=== PATIENT | female | born 1940 | race Caucasian/White ===

== ENCOUNTER 2018-09-26 16:11 | Inpatient (IN) | payer MEDICARE ==
--- OUTSIDE RECORDS SUMMARY | 2018-09-26 16:48 | XMS REPORT | Continuity of Care Document ---
:1940 External Reference #:[id number] Author Name Venessa Hoff M.D. 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 Onset: 10/21/2009 Osteoarthritis Kirby Huston M.D. Onset: 10/21/2009 Arthralgia of the lower leg Venessa Hoff M.D. Onset: 07/26/2012 Tobacco user Venessa Hoff M.D. Onset: 01/16/2018 Family History Date Family Member(s) Observation Comments First Son healthy lives in [place]. First Daughter healthy. loves next door. First Brother estranged. First Sister 72 dt ?? estranged. Social History Type Date Description Comments Sex Unknown Marital Status Patient is , of some sort of Cancer - possibly lung age 79, 05/2016. 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 Tobacco Use Start: Unknown Current Cigarette started when she was Smoker 1/2 Pack Daily in her 20's. Never stopped, never tried to stop. Smoking Status Reviewed: 12/19/17 Current Cigarette started when she was Smoker 1/2 Pack Daily in her 20's. Never stopped, never tried to stop. ETOH Use Denies alcohol use Tobacco Use Start: Unknown Patient is a current smoker, smokes every day Exercise Type/Frequency Exercises regularly Current goes to the [employer] to walk twice a week with a friend, from 1 hour to 3 hours. Allergies, Adverse Reactions, Alerts Description No Known Drug Allergies Medications Active Medications SIG Qnty Indications Ordering Provider Date [place] [facility] Venessa Hoff M.D. 02/20/2018 Ibuprofen prn Unknown 200mg Tablets History Medications Metoprolol Tartrate Take One Tablet 180tabs I10 Lu Tai, 12/23/2012 - 25mg By Mouth Twice [facility] 09/26/2018 Tablets Day Oxycodone HCL 1/2 to 1 po at 30tabs 719.46 Venessa Martinez 07/26/2012 - 5mg Tablets hs Joseline Hoff 12/19/2017 Lidoderm use on knees for 90units 719.46 Venessa Martinez 07/26/2012 - 5% Patches up to 12hours Joseline Hoff 01/16/2018 prn for pain Zyrtec 1 po qd - bid OTC 692.6 Lu Tai, 02/01/2011 - 10mg Tablets [facility] 12/06/2011 Lidex apply to 30gm 692.6 Lu Zaire, 02/01/2011 - 0.05% Cream affected areas [facility] 12/06/2011 bid K-Dur 1 po qd 60tabs Kirby A. 10/22/2009 - 20Meq Tablets PREETHI Huston M.D. 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 Also Low Back Percocet 1 PO Q 6HRS prn 60units Lisandro Lee 02/01/1999 - Joseline Go 11/21/2001 Voltaren XR 1 qd 20units Lisandro Lee 12/07/1998 - 100mg XR Joseline Go 11/21/2001 Relafen 1 PO bid prn 60units Lisandro Lee 11/26/1998 - 500mg Joseline Go 12/07/1998 Valium 1 PO tid prn 30units Lisandro Lee 11/16/1998 - 5mg Joseline Go 11/21/2001 Physical Therapy Treatment And Lisandro Lee 11/16/1998 - Evaluation Of Joseline Go 12/06/1998 L-S Spine Strain And Spasm With Sciatica Tylenol #3 1-2 PO Q4H prn 20units Bebe 11/15/1998 - #3 Lacie, 11/29/1998 Afnp-C Immunizations CPT Code Status Date Vaccine Lot # [id number] Given 01/16/2018 High-Dose, Influenza Virus Vacccine-fluzone 65 and [id number] older 84204 Given 12/19/2017 Pneumococcal Conjugate Vacc-13 [id number] Given 02/26/2015 High-Dose, Influenza Virus Vacccine-fluzone 65 and [id number] older 63995 Given 01/17/2014 High-Dose, Influenza Virus Vacccine-fluzone 65 and [id number] older 71729 Given 02/11/2013 High-Dose, Influenza Virus Vacccine-fluzone 65 and [id number] older 34722 Given 07/26/2012 Pneumococcal Immunization [id number] 58384 Given 03/23/2009 DO Not Use Split Influenza Virus Vaccine [id number] Vital Signs Date Vital Result Comment 09/26/2018 2:35pm BP Systolic 150 mmHg BP Diastolic 108 mmHg Heart Rate 66 /min Body Temperature 98.3 F Respiratory Rate 18 /min Height 62 inches 5'2" Weight 110.00 lb BMI (Body Mass Index) 20.1 kg/m2 02/20/2018 10:57am BP Systolic 126 mmHg BP Diastolic 70 mmHg Heart Rate 52 /min Body Temperature 97.9 F Respiratory Rate 16 /min Height 62 inches 5'2" Weight 105.00 lb BMI (Body Mass Index) 19.2 kg/m2 01/16/2018 11:05am BP Systolic 118 mmHg BP Diastolic 82 mmHg Heart Rate 68 /min Body Temperature 98.4 F Height 62 inches 5'2" Weight 107.38 lb BMI (Body Mass Index) 19.6 kg/m2 12/19/2017 2:08pm BP Systolic 138 mmHg BP Diastolic 80 mmHg Heart Rate 64 /min Body Temperature 98.6 F Respiratory Rate 16 /min Height 62 inches 5'2" Weight 107.50 lb BMI (Body Mass Index) 19.7 kg/m2 07/26/2012 4:10pm BP Systolic 120 mmHg BP Diastolic 76 mmHg Heart Rate 72 /min Body Temperature 97.2 F Height 62.5 inches 5'2.50" Weight 127.00 lb BMI (Body Mass Index) 22.9 kg/m2 12/06/2011 3:16pm BP Systolic 100 mmHg BP Diastolic 60 mmHg Heart Rate 62 /min Body Temperature 97.6 F Respiratory Rate 18 /min Height 62.5 inches 5'2.50" Weight 134.00 lb BMI (Body Mass Index) 24.1 kg/m2 02/01/2011 3:51pm BP Systolic 122 mmHg BP Diastolic 82 mmHg Heart Rate 84 /min Height 62.5 inches 5'2.50" Weight 152.00 lb BMI (Body Mass Index) 27.4 kg/m2 10/28/2010 3:06pm BP Systolic 116 mmHg BP Diastolic 64 mmHg Heart Rate 72 /min Body Temperature 98.0 F Height 62.5 inches 5'2.50" Weight 156.00 lb BMI (Body Mass Index) 28.1 kg/m2 10/21/2009 3:32pm BP Systolic 120 mmHg BP Diastolic 80 mmHg Heart Rate 84 /min Body Temperature 98.6 F Respiratory Rate 16 /min Height 62.5 inches 5'2.50" Weight 157.00 lb BMI (Body Mass Index) 28.3 kg/m2 02/19/2009 1:58pm BP Systolic 118 mmHg BP Diastolic 72 mmHg Heart Rate 74 /min Weight 165.00 lb 03/20/2008 11:08am BP Systolic 120 mmHg BP Diastolic 88 mmHg Heart Rate 68 /min Body Temperature 98.0 F Weight 178.00 lb 03/13/2007 1:27pm BP Systolic 120 mmHg BP Diastolic 80 mmHg Heart Rate 80 /min Body Temperature 97.1 F Weight 172.00 lb 02/24/2006 9:05am BP Systolic 120 mmHg BP Diastolic 80 mmHg Heart Rate 76 /min Body Temperature 98.1 F Weight 167.00 lb 03/23/2005 1:48pm BP Systolic 110 mmHg BP Diastolic 70 mmHg Heart Rate 70 /min 02/27/2005 1:21pm BP Systolic 128 mmHg BP Diastolic 88 mmHg Heart Rate 80 /min Weight 158.00 lb 01/25/2005 3:11pm BP Systolic 140 mmHg BP Diastolic 90 mmHg Heart Rate 100 /min 11/21/2001 9:52am BP Systolic 132 mmHg BP Diastolic 84 mmHg Weight 165.00 lb 08/16/2001 11:31am BP Systolic 134 mmHg BP Diastolic 80 mmHg Heart Rate 76 /min 05/28/2001 3:21pm BP Systolic 150 mmHg BP Diastolic 90 mmHg Heart Rate 100 /min Weight 172.00 lb 02/01/1999 2:08pm BP Systolic 142 mmHg LA SM Cuff BP Diastolic 90 mmHg LA SM Cuff Weight 127.00 lb 11/15/1998 8:00pm Body Temperature 97.8 F Results Test Date Facility Test Result H/L Range Note Laboratory test 05/02/2018 [facility] Cytology SEE RESULT 1 finding Non-Leather Lacer BELOW Laboratory test 02/20/2018 [facility](fma) Free T3 3.02 pg/mL 2.00- 4.90 finding Free T4 1.35 ng/dL 0.75-1.54 TSH 0.19 mIU/L Low 0.50-6.00 2 Vitamin D25 42 30-100 Thyroid Antibody & 02/20/2018 [facility] Thyroid Peroxidase 11 IU/mL 0-34 3 Peroxidase [address] [facility] (Tpo) [place] [address] (607)- - Thyroglobulin Antibody <1.0 IU/mL 0.0-0.9 4 Laboratory test finding 01/16/2018 [facility](fma) TSH 0.29 mIU/L Low 0.50-6.00 5 Free T4 1.10 ng/dL 0.75-1.54 Free T3 2.84 pg/mL 2.00-4.90 Lipid Profile 12/19/2017 [facility](fma) Cholesterol 181 mg/dL 120- 200 Triglycerides 115 mg/dL 30-200 HDL Cholesterol 62 mg/dL 30-85 LDL (Calculated) 96 CALC 0-129 VLDL Cholesterol 23 mg/dL 0-50 HDL Risk Factor 2.9 CALC 0.0-4.4 Comprehensive Metabolic 12/19/2017 [facility](fma) Sodium 143 mEq/L 134-149 Prof Potassium 4.2 mEq/L 3.6-5.5 Chloride 107 mEq/L 94-112 Carbon Dioxide 28 mEq/L 21-32 Glucose 109 mg/dL High 70-105 6 BUN 25 mg/dL 6-26 Creatinine 0.6 mg/dL 0.6-1.4 BUN/Creat Ratio 41.7 CALC High 8.0-36.0 Calcium 9.4 mg/dL 8.6-10.2 Total Protein 6.7 g/dL 6.4-8.3 Albumin 4.6 g/dL 3.8-5.5 Globulin 2.1 g/dL 2.0-4.8 A/G Ratio 2.2 CALC 0.6-2.3 Alk. Phosphatase 85 U/L 30-110 Alt (SGPT) 29 U/L 7-35 Ast (Sgot) 24 U/L 5-34 Total Bilirubin 0.4 mg/dL 0.2-1.3 GFR Non- >60 ml/min/1.73m^ >=60 GFR >60 ml/min/1.73m^ >=60 Laboratory test finding 12/19/2017 [facility](fma) TSH 0.12 mIU/L Low 0.50-6.00 7 Free T4 1.11 ng/dL 0.75-1.54 CBC Electronic (a New) 12/19/2017 [facility] WBC 5.51 4.0-10.0 (607)- - RBC 3.85 Low 3.93-6.0 Hemoglobin (Fma/CMC/CTX) 13.0 g/dL 12.0-17.0 Hematocrit (Fma/CMC/CTX) 38.2 % 35.0-50.0 Mean Corpuscular Vol 99.2 fL High 80-95 Mean Corpuscular Hemoglobin 33.8 pg High 25.6-32.2 Mean Corpuscular Hemo Concen 34.0 g/dL 32.2-36.0 Platelets 187 10^3/ul 163-400 RDW-CV 13.3 11.6-14.4 Mean Platelet Volume 10.5 fL 8.0-12.4 Absolute Neutrophils BLD 2.95 1.56-6.13 Absolute Lymphocytes 1.89 1.18-3.74 Absolute Monocytes BLD Auto 0.55 0.24-0.82 Absolute Eos Blood 0.08 0.04-0.54 Absolute Basophils 0.03 0.01-0.08 Neutrophil % 53.5 % 34.0-70.0 Lymph% 34.3 % 20.0-52.0 Monocytes % 10.0 % 5.0-12.0 Eos % 1.5 % 0.7-7.0 Basophil% 0.5 % 0-1.2 Arthritis Panel 08/08/2012 [facility] Erythrocyte Sed Rate 12 mm/Hr 0-40 Uric Acid 5.3 mg/dL 2.6-7.2 Lilliana (Anti-Nuclear AB) Screen Negative Negative Rheumatoid Factor <15 IU/mL <15 8 Laboratory test 08/08/2012 [facility] C Reactive < 0.5 mg/dL Less than finding Protein 0.5 Laboratory test 12/06/2011 [facility]) TSH 0.47 mIU/L Low 0.50- 6.00 9 finding Free T4 1.17 ng/dL 0.75-1.54 Iron 114 g/dL 60-150 CBC Electronic ([facility]) 12/06/2011 [facility] WBC 7.7 3.6-9.6 (607)- - RBC 4.39 3.90-5.70 Hemoglobin (Fma/CMC/CTX) 14.3 g/dL 12.1 - 17.2 Hematocrit (Fma/CMC/CTX) 43.6 % 36.1 - 50.3 Platelets 269 10^3/ul 150-400 Lymph% 31.0 20.5-51.1 Mixed% 6.9 Neutrophils % 62.1 Mean Corpuscular Vol 99 High 82.2-97.4 10 Mean Corpuscular Hemoglobin 32.7 27.6-33.3 Mean Corpuscular Hemo Concen 32.9 32.0-36.0 RDW 13.2 11.6-13.7 Mean Platelet Volume 7.6 6.5-11.0 Comprehensive Metabolic 12/06/2011 [facility](fma) Albumin 4.8 g/dL 3.8-5.5 Prof Alk. Phos. 82 U/L 30-110 Alt (SGPT) 17 U/L 7-35 Ast (Sgot) 19 U/L 5-34 BUN 19 mg/dL 6-26 Calcium 9.4 mg/dL 8.6-10.2 Chloride 94 mEq/L 94-112 Creatinine 0.7 mg/dL 0.6-1.4 Carbon Dioxide 26 mEq/L 21-32 Glucose 122 mg/dL High 70-105 11 Sodium 135 mEq/L 134-149 Total Bilirubin 0.4 mg/dL 0.2-1.3 Total Protein 7.0 g/dL 6.3-8.1 Potassium 3.2 mEq/L Low 3.6-5.5 12 Globulin 2.2 g/dL 2.0-4.8 A/G Ratio 2.2 Calc 0.6-2.2 BUN/Creat Ratio 28.0 Calc 8.0-36.0 Basic Metabolic Profile 01/14/2010 [facility](fma) BUN 23 mg/dL 6- 26 Calcium 9.6 mg/dL 8.6-10.2 Chloride 95 mEq/L 94-112 Creatinine 0.9 mg/dL 0.6-1.4 Carbon Dioxide 30 mEq/L 21-32 Glucose 102 mg/dL 70-105 Sodium 135 mEq/L 134-149 Potassium 3.7 mEq/L 3.6-5.5 BUN/Creat Ratio 25.5 Calc 8.0-36.0 Electrolytes Profile 10/25/2009 [facility](a) Chloride 99 mEq/L 94 -112 Carbon Dioxide 28 mEq/L 21-32 Sodium 141 mEq/L 134-149 Potassium 3.9 mEq/L 3.6-5.5 Anion Gap 17.0 RATIO 7.0-34.0 Basic Metabolic Profile 10/21/2009 [facility](a) BUN 23 mg/dL 6- 26 Calcium 10.0 mg/dL 8.6-10.2 Chloride 96 mEq/L 94-112 Creatinine 0.8 mg/dL 0.6-1.4 Carbon Dioxide 27 mEq/L 21-32 Glucose 138 mg/dL High 70-105 13 Sodium 141 mEq/L 134-149 Potassium 2.9 mEq/L Low 3.6-5.5 14 BUN/Creat Ratio 29.3 Calc 8.0-36.0 Comprehensive Metabolic 02/23/2009 [facility](a) Albumin 4.6 g/dL 3.8-5.5 15 Prof Alk. Phos. 84 U/L 30-110 Alt (SGPT) 13 U/L 7-35 Ast (Sgot) 20 U/L 5-34 BUN 22 mg/dL 6-26 Calcium 9.3 mg/dL 8.6-10.2 Chloride 97 mEq/L 94-112 Creatinine 0.9 mg/dL 0.6-1.4 Carbon Dioxide 28 mEq/L 21-32 Glucose 113 mg/dL High 70-105 Sodium 137 mEq/L 134-149 Total Bilirubin 0.5 mg/dL 0.2-1.3 Total Protein 7.3 g/dL 6.3-8.1 Potassium 3.3 mEq/L Low 3.6-5.5 16 Globulin 2.7 g/dL 2.0-4.8 A/G Ratio 1.7 Calc 0.6-2.2 BUN/Creat Ratio 24.9 Calc 8.0-36.0 Lipid Profile 02/23/2009 [facility](a) Cholesterol 243 mg/dL High 120-200 HDL 47 mg/dL 30-85 Triglycerides 156 mg/dL 30-200 HDL Risk Factor 5.1 CALC 4.2-7.0 LDL (Calculated) 165 CALC High 0-129 VLDL (Calculated) 31 mg/dL 0-50 Comprehensive Metabolic 03/22/2007 [facility](a) Albumin 4.6 g/dL 3.8-5.5 Prof Alk. Phos. 84 U/L 30-110 Alt (SGPT) 11 U/L 7-35 Ast (Sgot) 15 U/L 5-34 BUN 21 mg/dL 6-26 Calcium 9.0 mg/dL 8.6-10.2 Chloride 96 mEq/L 94-112 Creatinine 0.9 mg/dL 0.6-1.4 Carbon Dioxide 30 mEq/L 21-32 Glucose 107 mg/dL High 70-105 Sodium 139 mEq/L 134-149 Total Bilirubin 0.4 mg/dL 0.2-1.3 Total Protein 7.2 g/dL 6.3-8.1 Potassium 3.3 mEq/L Low 3.6-5.5 17 Globulin 2.6 g/dL 2.0-4.8 A/G Ratio 1.7 Calc 0.6-2.2 BUN/Creat Ratio 25.1 Calc 8.0-36.0 Lipid Profile 03/22/2007 [facility](a) Cholesterol 231 mg/dL High 120-200 HDL 41 mg/dL 30-85 Triglycerides 117 mg/dL 30-200 HDL Risk Factor 5.6 CALC 4.2-7.0 LDL (Calculated) 167 CALC High 0-129 VLDL (Calculated) 23 mg/dL 0-50 Basic Metabolic 01/25/2005 [facility] Glucose, Serum 152 mg/dL High 70-105 (a) (607)- - (Fma/CMC/CTX) BUN (Fma/CMC/Centrex) 17 mg/dL 6-26 Creatinine (Fma/CMC/CTX) 0.7 mg/dL 0.6-1.4 BUN/Creatinin Ratio 26.9 8.0-36 Sodium 139 134-149 Potassium 3.7 3.6-5.5 Chloride 97 mEq/L 94-112 Co2 29 21-32 Calcium (Fma/CMC/Centrex) 8.6 mg/dL 8.6-10.2 Laboratory test finding 05/24/2000 [facility] Rheumatoid Fact <7.5 0-14 Final Lilliana Report NEGATIVE Negative Laboratory test finding 05/24/2000 [facility] Free T4 1.1 ng/dL 0.7-1.8 Thyroxine, Total (T4) 8.3 g/dL 5-12 TSH 0.5 0.3-4.5 C React Protein <0.30 mg/dL <0.5 Sed Rate 25 MM/HR 0-30 1 SEE RESULT BELOW Name: GRAYSON DE LOS SANTOS : [address]: Mark Morin MD Acct: [id number] Unit: [id number] AGE: 77 Location: THYROID Re05/02/18 SEX: F Status: REG REF SPEC: [id number] KLEBER: 05/02/18-[address] [facility] [address]: Mark Morin MD REQ: [id number] RECD: 05/02/18-1140 STATUS: MITCHEL LUCAS DR: Bill Hoff MD _ ORDERED: FNA-IMG GUID BX/2, CY ADEQ-ADDL P, CYTO ADEQ-1ST P/2 FINAL DIAGNOSIS 1. Thyroid, right, ultrasound guided fine needle aspiration: --Benign thyroid nodule, involutional type ([place] Class II). 2. Thyroid, isthmus, ultrasound guided fine needle aspiration: --Benign thyroid nodule, colloid/hyperplastic type ([place] Class II). 1. The specimen demonstrates moderate watery proteinaceous fluid, a moderate amount of benign appearing follicular epithelium arranged in uniform sheets, medium sized follicles and only occasional small groups. Abundant pigmented and non-pigmented macrophages are seen in the background. No features of papillary carcinoma are seen. In this clinical setting the risk of malignancy is less than 3%. Clinical management of this thyroid nodule should be based on clinical and radiographic features as well as the above findings. 2. The specimen demonstrates abundant watery colloid, a modest amount of benign appearing follicular epithelium arranged in uniform sheets, medium sized follicles and only occasional small groups. No features of papillary carcinoma are seen. In this clinical setting the risk of malignancy is less than 3%. Clinical management of this thyroid nodule should be based on clinical and radiographic features as well CONTINUED ON NEXT PAGE DEPARTMENT OF PATHOLOGY, [address] [place] [address] Lisandro Velasco M.D. Director [facility] # [id number] RUN DATE: 05/02/18 [facility] LAB LIVE PAGE 2 Patient: GRAYSON DE LOS SANTOS Samara [id number] (Continued) SPECIMEN COMMENTS (Continued) as the above. #1. THYROID RIGHT - US GUIDED FINE NEEDLE ASPIRATION, #2. THYROID ISTHMUS - US GUIDED FINE NEEDLE ASPIRATION CLINICAL HISTORY 1. Right thyroid nodule 2.6 x 1.8 x 1.6cm 2. Isthmus thyroid nodule 1.1 x 0.9 x 1.3cm IMMEDIATE INTERPRETATION 1. Pass 1-inadequate, pass 2-adequate 2. Pass 1-adequate GROSS DESCRIPTION 1. 5- alcohol fixed slide(s) 2- passes 2. 2- alcohol fixed slide(s) 1- pass 1. Signed by and Reported on: Crystal Meehan MD 05/02/18 1156 END OF REPORT DEPARTMENT OF PATHOLOGY, [address] [place] [address] Lisandro Velasco M.D. Director [facility] # [id number] 2 RESULTS VERIFIED BY REPEAT ANALYSIS 3 1sst 4 Thyroglobulin Antibody measured by [employer] [facility] 5 RESULTS VERIFIED BY REPEAT ANALYSIS 6 RESULTS VERIFIED BY REPEAT ANALYSIS 7 RESULTS VERIFIED BY REPEAT ANALYSIS 8 Test Performed by: [place] [address] Manager Plumbing: Manoj Loco III, M.D. 9 RESULT JOÃO'D 10 results rechecked 11 RESULT JOÃO'D 12 RESULT JOÃO'D 13 result joão'd 14 result joão'd md aware 15 FASTING 16 result joão'd and consisent with prevoius results. 17 RESULT VERIFIED BY REPEAT ANALYSIS Procedures Date Code Description Status 10/21/2009 93478 Electrocardiogram Complete Completed Encounters Type Date Location Provider Dx Diagnosis Office Visit 02/20/2018 Main Office Venessa Hoff, R94.6 Abnormal results of 10:40a Joseline thyroid function studies F17.210 Nicotine dependence, cigarettes, uncomplicated M85.80 Oth disrd of bone density and structure, unspecified site E55.9 Vitamin D deficiency, unspecified I67.2 Cerebral atherosclerosis Z71.6 Tobacco abuse counseling Office Visit 01/16/2018 10:40a Main Office Venessa Martinez I10 Essential ( primary) Joseline Hoff hypertension R94.6 Abnormal results of thyroid function studies F17.210 Nicotine dependence, cigarettes, uncomplicated I65.21 Occlusion and stenosis of right carotid artery R53.1 Weakness M81.0 Age-related osteoporosis w/o current pathological fracture Z23 Encounter for immunization Office Visit 12/19/2017 2:00p Main Office Venessa Martinez Z00.01 Encounter for Joseline Hoff general adult medical exam w abnormal findings F17.210 Nicotine dependence, cigarettes, uncomplicated I10 Essential (primary) hypertension M19.90 Unspecified osteoarthritis, unspecified site E78.2 Mixed hyperlipidemia Z23 Encounter for immunization Office Visit 07/26/2012 3:20p [facility] Venessa Martinez 719.46 Pain Joint Joseline Hoff Lower Leg v03.82 Streptococcus Pneumoniae Vaccination Spec Other Office Visit 12/06/2011 3:00p Main Office Lu Tai, 401.9 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 Office Visit 02/01/2011 3:15p [facility] Lu Tai, 692.6 Dermatitis Contact 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 Due To Plants (Except Food) Office Visit 10/28/2010 3:00p Main Office Lu Tai, 401.9 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 Office Visit 10/21/2009 3:40p Main Office Kirby Eason V72.83 Examination Joseline Huston Preoperative Other Spec 366.9 Cataract Unspec 401.9 Hypertension Unspec 715.90 Osteoarthrosis Unspec Genlzd Or Localzd Site Unspec Office Visit 02/19/2009 2:00p Main Office Lu Tai, 401.9 Hypertension Unspec 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 Office Visit 02/27/2005 1:10p Main Office Darrell Darling 401.9 Hypertension Unspec M.D. Office Visit 01/25/2005 3:10p Main Office Darrell Darling 401.9 Hypertension Unspec M.D. Office Visit 11/21/2001 9:40a Main Office Darrell Darling M.D. Office Visit 08/16/2001 11:00a Main Office Yaya Law M.D. Office Visit 05/28/2001 3:00p Main Office Lisandro Go M.D. Plan of Treatment 09/26/2018 - Venessa Hoff M.D.R06.02 Shortness of breathComments:with em edema, tachycardia, will send to ER for further work up.AllComments:Medication Management Patient Understands medications she's taking? Yes No Are there Barriers to Adherence? Yes No Has the patient been asked about herbal supplements and therapies, and OTC meds? Yes No
[2018-09-26 18:48] LABS: ABS Lymphocytes 1.8 10^3/ul (1.0-4.8); ABS Monocytes 0.6 10^3/ul (0-0.8); ABS Neutrophils 5.9 10^3/ul (1.5-7.7); Eosinophil % 0.2 %; Hematocrit 45 % (35-47); Hemoglobin 14.9 g/dL (12.0-16.0); Lymphocyte % 21.9 %; Mean Corpuscular HGB Conc 33 g/dL (31-36); Mean Corpuscular Hemoglobin 34 pg (27-31); Mean Corpuscular Volume 102 fL (80-97); Mean Platelet Volume 9.3 fL (7.4-10.4); Nucleated Red Blood Cells % 0.1; Platelet Count 193 10^3/uL (150-450); Red Cell Distribution Width 14 % (10-15); White Blood Count 8.4 10^3/uL (3.5-10.8)
[2018-09-26 19:02] LABS: Activated Partial Thrombo Time 29.3 seconds (26.0-38.0); INR 1.1 (0.82-1.09)
--- NOTE | 2018-09-26 19:10 | ED ---
Lower Extremity - HPI Summary HPI Summary: Pt is a 77 y/o F presenting to the ED with a chief complaint of edema in her lower extremity bilaterally. She was at her PCP who noted that her bilateral LE edema was worsened, and wanted her to r/o CHF. She reports fatigue, bilateral LE edema, and dizziness with position change. She denies black or tarry stools, blood in stool, or hematuria. - History of Current Complaint Chief Complaint: EDShortnessOfBreath Stated Complaint: SOB, HIGH BP PER PT Time Seen by Provider: 09/26/18 18:05 Hx Obtained From: Patient Mechanism Of Injury: Unknown Onset/Duration: Still Present Severity Initially: Mild Severity Currently: None Pain Intensity: 0 Pain Scale Used: 0-10 Numeric Timing: Constant, Lasting Days Location: Is Diffuse - LE Associated Signs And Symptoms: Positive: Swelling Aggravating Factor(s): Nothing Alleviating Factor(s): Nothing Able to Bear Weight: Yes - Allergies/Home Medications Allergies/Adverse Reactions: Allergies Allergy/AdvReac Type Severity Reaction Status Date / Time No Known Allergies Allergy Verified 09/26/18 16:12 PMH/Surg Hx/FS Hx/Imm Hx Previously Healthy: Yes Endocrine/Hematology History: Denies: Hx Diabetes, Hx Anemia GI History: Denies: Hx Jaundice Infectious Disease History: No Infectious Disease History: Denies: Traveled Outside the [place] in Last 30 Days - Family History Known Family History: Negative: Cardiac Disease - Social History Alcohol Use: None Hx Substance Use: No Substance Use Type: Reports: None Hx Tobacco Use: Yes Smoking Status (MU): Heavy Every Day Tobacco Smoker Review of Systems Positive: Other - blood in stool, black tarry stool Positive: hematuria Positive: Edema Neurological: Other - dizziness All Other Systems Reviewed And Are Negative: Yes Physical Exam - Summary Physical Exam Summary: Constitutional: Well-developed, Well-nourished, Alert. (-) Distressed Skin: Warm, Dry HENT: Normocephalic; Atraumatic Eyes: Conjunctiva normal Neck: Musculoskeletal ROM normal neck. (-) JVD, (-) Stridor, (-) Tracheal deviation Cardio: irregularly irregular, rate normal, Heart sounds normal; Intact distal pulses; The pedal pulses are 2+ and symmetric. Radial pulses are 2+ and symmetric. Pulmonary/Chest wall: Effort normal. (-) Respiratory distress, (-) Wheezes, Bibasilar rales present Abd: Soft, (-) tenderness, (-) Distension, (-) Guarding, (-) Rebound Musculoskeletal: Edema in the L leg is 3-4+ pitting, and edema in R leg is 2+ pitting. Posterior compartment is firm in the L calf in comparison to the R calf. Neuro: Alert, Oriented x3 Psych: Mood and affect Normal Triage Information Reviewed: Yes Vital Signs On Initial Exam: Initial Vitals Temp Pulse Resp BP Pulse Ox 97.5 F 112 18 155/103 93 09/26/18 16:12 09/26/18 16:12 09/26/18 16:12 09/26/18 16:12 09/26/18 16:12 Vital Signs Reviewed: Yes Diagnostics - Vital Signs Vital Signs Temp Pulse Resp BP Pulse Ox 09/26/18 16:12 97.5 F 112 18 155/103 93 - Laboratory Lab Results: Lab Results 09/26/18 09/26/18 Range/Units 18:41 18:41 WBC 8.4 (3.5-10.8) 10^3/uL RBC 4.40 (3.70-4.87) 10^6 /uL Hgb 14.9 (12.0-16.0) g/dL Hct 45 (35-47) % MCV 102 H (80-97) fL MCH 34 H (27-31) pg MCHC 33 (31-36) g/dL RDW 14 (10-15) % Plt Count 193 (150-450) 10^3/uL MPV 9.3 (7.4-10.4) fL Neut % (Auto) 70.1 % Lymph % (Auto) 21.9 % [place] % (Auto) 7.4 % Eos % (Auto) 0.2 % Baso % (Auto) 0.4 % Absolute Neuts (auto) 5.9 (1.5-7.7) 10^3/ul Absolute Lymphs (auto) 1.8 (1.0-4.8) 10^3/ul Absolute Monos (auto) 0.6 (0-0.8) 10^3/ul Absolute Eos (auto) 0.0 (0-0.6) 10^3/ul Absolute Basos (auto) 0.0 (0-0.2) 10^3/ul Absolute Nucleated RBC 0.0 10^3/ul Nucleated RBC % 0.1 INR (Anticoag Therapy) 1.10 H (0.82-1.09) APTT 29.3 (26.0-38.0) seconds Result Diagrams: 09/26/18 18:41 Lab Statement: Any lab studies that have been ordered have been reviewed, and results considered in the medical decision making process. Lower Extremity Course/Dx - Course Course Of Treatment: Pt is a 77 y/o F presenting to the ED with a chief complaint of edema in her lower extremity bilaterally. She was at her PCP who noted that her bilateral LE edema was worsened, and wanted her to r/o CHF. She reports fatigue, bilateral LE edema, and dizziness with position change. She denies black or tarry stools, blood in stool, or hematuria. In the room, the pt 's HR was variable between 69-110. On exam, there is edema in the L leg is 3-4 + pitting, and edema in R leg is 2+ pitting. Posterior compartment is firm in the L calf in comparison to the R calf. Pt will be signed out to Dr. Ashraf at shift change pending further workup. - Diagnoses Provider Diagnoses: Fatigue, Leg edema Discharge - Sign-Out/Discharge Documenting (check all that apply): Sign-Out Patient Signing out patient TO: Angela Ashraf - Discharge Plan Condition: Stable Referrals: Venessa Hoff MD [Primary Care Provider] - - Attestation Statements Document Initiated by Scribe: Yes Documenting Scribe: Yaritza Anna Provider For Whom Mariam is Documenting (Include Credential): Denny Stiles MD. Scribe Attestation: Yaritza Iglesias, scribed for Denny Stiles MD. on 09/26/18 at 1910. Status of Scribe Document: Ready
[2018-09-26 19:14] LABS: Albumin 3.9 g/dL (3.2-5.2); CO2 Carbon Dioxide 33 mmol/L (22-32); Calcium 9.8 mg/dL (8.6-10.3); Chloride 107 mmol/L (101-111); Magnesium 1.8 mg/dL (1.9-2.7); Potassium 3.3 mmol/L (3.5-5.0)
[2018-09-26 19:15] LABS: Anion Gap 6 mmol/L (2-11); Sodium 146 mmol/L (135-145)
[2018-09-26 19:20] LABS: ALT 112 U/L (7-52); AST 61 U/L (13-39); Albumin/Globulin Ratio 1.9 (1-3); Alkaline Phosphatase 70 U/L (34-104); Blood Urea Nitrogen 30 mg/dL (6-24); Creatine Kinase 35 U/L (10-223); EGFR African American 145.5 (>60); EGFR Non-African American 120.3 (>60); Globulin 2.1 g/dL (2-4); Glucose 108 mg/dL (70-100)
[2018-09-26 19:22] LABS: Troponin I 0.11 ng/mL (<0.04)
--- NOTE | 2018-09-26 19:47 | ED ---
Progress - Progress Note Progress Note: The pt is a sign out from Dr. Stiles to Dr. Ashraf at shift change on 09/26/18 at 1900 pending a CXR and VL Lower Extremity vein bilaterally. - Results/Orders Results/Orders: The pt had an EKG which showed sinus tachycardia of 109 BPM, LVH, with no acute ischemia. The EKG was interpreted at 1945. The pt received a CXR that showed cardiomegaly with bilateral interstitial infiltrate. This report is consistent with CHF. Pending an official review. The pt received a Venous Doppler study of her LE which found 1. Poor visualization of calf veins bilaterally due to edema, uncontrollable movement and tenderness and DVTs difficult to exclude in the calves. 2. Otherwise negative bilateral lower extremity venous duplex exam without evidence of deep venous thrombosis above the knees. ED Physician has reviewed this report. Re-Evaluation - Re-Evaluation First Eval Re-Evaluation Time: 19:47 Change: Unchanged Comment: The pt stated that she has had swollen feet since Sunday09/22/18. She does not currently take any medications for edema. She is on no current medications at home other than APAP and Advil. She denies any pain in her chest. Upon a PE the pt was found to have fluid in her lungs. Course/Dx - Course Course Of Treatment: The pt is a sign out from Dr. Stiles to Dr. Ashraf at shift change on 09/26/18 at 1900 pending a CXR and VL Lower Extremity vein bilaterally. Pt has abnormal lab values in Sodium, Potassium, Carbon Dioxide, BUN, Creatinine, BUN/Creatinine ration, Glucose, Magnesium, AST, ALT, Troponin 1 of .11, Total Protein, and B-Natriuretic Peptide of >1300. The pt stated that she has had swollen feet since Sunday09/22/18. She does not currently take any medications for edema. She is on no current medications at home other than APAP and Advil. She denies any pain in her chest. Upon a PE the pt was found to have fluid in her lungs. The pt had an EKG which showed sinus tachycardia of 109 BPM , LVH, with no acute ischemia. The EKG was interpreted at 1945. The pt received a CXR that showed cardiomegaly with bilateral interstitial infiltrate. This report is consistent with CHF. She also received a venous doppler study of her LE which found: 1. Poor visualization of calf veins bilaterally due to edema, uncontrollable. movement and tenderness and DVTs difficult to exclude in the calves. 2. Otherwise negative bilateral lower extremity venous duplex exam without evidence of deep venous thrombosis above the knees. The pt will be admitted to [facility] with a diagnosis of CHF and will be placed under the care of Dr. Hilliard, Hospitalist, who accepts the pt. - Diagnoses Provider Diagnoses: CHF (congestive heart failure) - Provider Notifications Discussed Care Of Patient With: Shweta Hilliard Time Discussed With Above Provider: 20:15 Instructed by Provider To: Admit As Inpatient Admit/Transition Orders Completed By ED Provider: Yes Discharge - Sign-Out/Discharge Documenting (check all that apply): Patient Departure - admitted, Receiving Sign -Out Receiving patient FROM: Denny Stiles All imaging exams completed and their final reports reviewed: Yes Patient Received Moderate/Deep Sedation with Procedure: No - Discharge Plan Condition: Stable Disposition: ADMITTED TO [facility] - Billing Disposition and Condition Condition: STABLE Disposition: Admitted to [facility] - Attestation Statements Document Initiated by Bethanyibe: Yes Documenting Scribe: Salvatore Leach Provider For Whom Bethanyibe is Documenting (Include Credential): Angela Ashraf MD Scribe Attestation: Salvatore Iglesias, scribed for Angela Ashraf MD on 09/27/18 at 0600. Scribe Documentation Reviewed: Yes Provider Attestation: The documentation as recorded by the Salvatore pringle accurately reflects the service I personally performed and the decisions made by Jessica moyer MD Status of Scribe Document: Viewed
[2018-09-26] MEDS ORDERED: Aspirin 81 mg CHEW TAB* 81 MG TAB.CHEW PO ONE (19:50)
[2018-09-26] MEDS ORDERED: Furosemide IV* 10 MG/ML VIAL (40 MG) IV SLOW PU ONE (19:50)
[2018-09-26] MEDS ORDERED: Potassium Chlor TAB* 20 MEQ TAB.ER PO ONE (19:51)
[2018-09-26] MEDS ORDERED: Acetaminophen TAB* 325 MG PO PRN (21:26)
[2018-09-26] MEDS ORDERED: Ondansetron INJ* 2 MG/ML VIAL IV PRN (21:26)
[2018-09-26] MEDS ORDERED: Magnesium Sulfate 2 GM IV* 2 GM/50 ML BAG IVPB ONE (22:03)
[2018-09-26] MEDS: Enoxaparin(*) 40 MG/0.4 ML SYR SUBCUT SCH (23:27)
--- NOTE | 2018-09-27 00:21 | HP ---
CC: Dr. Venessa Hoff * HISTORY AND PHYSICAL: DATE OF ADMISSION: 09/26/18 PRIMARY CARE PROVIDER: Dr. Venessa Hoff. ATTENDING PHYSICIAN: Dr. Shweta Hilliard * (dictated by Ariane Taylor NP). CHIEF COMPLAINT: Lower extremity edema and shortness of breath. HISTORY OF PRESENT ILLNESS: Ms. De Los Santos is a 77-year-old female with past medical history of hypertension and osteoarthritis, who presents to the emergency room today with complaints of worsening lower extremity edema and shortness of breath. The patient reports these symptoms started approximately 4 days ago. She does report that she has had some occasional edema on her lower extremities for a number of years, although nothing to this extent and the edema had typically resolved within a day previously. She did also note fatigue and dizziness. 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 The patient has previously been on metoprolol and hydrochlorothiazide, although she reports that she stopped these approximately 2 years ago. In the emergency room, the patient was noted to have mild hypokalemia and hypomagnesemia. She was also noted to have an elevated troponin of 0.11 and an elevated BNP greater than 1300. She had a chest x-ray, which was concerning for pulmonary edema and because of this, the hospitalist service was asked to evaluate for admission. PAST MEDICAL HISTORY: 1. Hypertension. 2. Osteoarthritis. PAST SURGICAL HISTORY: 1. Tubal ligation. 2. Tonsillectomy 3. Thoracic outlet, left arm. HOME MEDICATIONS: 1. Multivitamin 1 tab p.o. daily. 2. Sunspot-3 fatty acid 2 caps p.o. daily. 3. Acetaminophen 1000 mg p.o. at bedtime p.r.n. pain. 4. Ibuprofen 800 mg p.o. at bedtime p.r.n. pain. ALLERGIES: No known drug allergies. FAMILY HISTORY: The patient reports a significant family history for heart disease. She reports that her mother, father, and sister all in their mid 70s due to heart disease. SOCIAL HISTORY: The patient smokes one-half pack per day and has been doing so since her 20s. She denies any alcohol or recreational drug use. 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 She lives at home alone. Her daughter, Juliana De Los Santos, who will be her surrogate decision maker in the event she is unable to make her own decisions. Her phone number is [phone]. REVIEW OF SYSTEMS: An 11-point review of systems was performed and all the pertinent positive and negative findings are in the HPI, all other systems are negative. PHYSICAL EXAMINATION GENERAL: Ms. De Los Santos is a well-developed, well-nourished elderly white woman, sitting, in no acute distress. She appears her stated age. VITAL SIGNS: Temp 97.5, heart rate 108, respiratory rate 25, oxygen saturation 93% on 2 L, blood pressure 163/110. HEENT: Head is atraumatic, normocephalic. Visual yoon are grossly intact. Pupils equal, round, and reactive to light and accommodation. Extraocular movements intact. Hearing is grossly intact. Oral mucous membranes are moist and without lesions. NECK: Full range of motion. Thyroid nonpalpable. Trachea midline. No lymphadenopathy. RESPIRATORY: Symmetrical chest expansion. No chest wall deformities. Coarse crackles to bilateral bases, otherwise diminished throughout. No rhonchi or wheezes. CARDIOVASCULAR: Regular rhythm, tachycardic. S1, S2 present. No murmurs, rubs , or gallops. No JVD. ABDOMEN: Soft and nontender to palpation. Bowel sounds normoactive throughout. EXTREMITIES: Right lower extremity is warm to the touch. Left lower extremity is cool to the touch, though the patient states this is her baseline. There is +2 to +3 pitting edema in bilateral lower extremities. NEURO: Awake, alert, oriented x4. Cranial nerves II through XII grossly intact. Moves all extremities. Motor strength is 5/5 in bilateral upper extremities and 5/5 in the right lower extremity. Strength is 3/5 in the left lower extremity, which is her reported baseline. Gait was not tested. Skin: Grossly intact without lesions. DIAGNOSTIC STUDIES/LABORATORY DATA: WBC 8.4, RBC 4.4, hemoglobin 14.9, hematocrit 45, platelets 193. INR 1.1. Sodium 146, potassium 3.3, chloride 107 , carbon dioxide 33, BUN 30, creatinine 0.5, glucose 108, lactic acid 1.3, magnesium 1.8, AST 61, ALT 112, troponin 0.11, BNP greater than 1300. EKG shows sinus tachycardia with a rate of 109, QTc 467. There is mild ST elevation in lead V1 through V3, which may represent early repolarization. There are otherwise no ischemic changes. There is no previous EKG for comparison. Chest x-ray to my read shows pulmonary edema consistent with CHF. Bilateral lower extremity venous Doppler study reads as poor visualization of calf veins bilaterally due to edema, uncontrollable movement and tenderness and DVT is difficult to exclude in the calves. Otherwise, negative bilateral lower extremity venous Doppler. Duplex exam is without evidence of deep venous thrombosis of both the knees. ASSESSMENT AND PLAN: Ms. De Los Santos is a 77-year-old female with past medical history of hypertension, who presents to the emergency room today with lower extremity edema and shortness of breath and appears to be a new onset of congestive heart failure exacerbation. The patient will be admitted inpatient for: 1. New-onset congestive heart failure exacerbation. Clinically, the patient appears to be in acute congestive heart failure due to crackles in her lungs and edema in her lower extremities. Laboratory data supports this with an elevated BNP and it is further supported by chest x-ray showing pulmonary edema. The patient does have a mildly elevated troponins. She has no previous troponins on record. At this point, I am not concerned about any acute coronary syndrome as I believe her troponin is elevated secondary to demand ischemia. Additionally, her LFTs are mildly elevated, which is likely due to hepatic congestion and I will recheck a CMP tomorrow. The patient did receive 1 dose of Lasix in the emergency room. I will continue her on 40 mg of IV Lasix daily , although I will avoid ordering anything further at this point as she is Lasix naive. I have ordered an echocardiogram tomorrow and have additionally ordered strict I and O and daily weights. 2. Hypertension. The patient is hypertensive in the emergency room with systolics up into the 160s. I will avoid ordering any antihypertensives at this point as she will be getting high doses of Lasix. 3. Fluid, electrolytes, nutrition: The patient does not require any fluid resuscitation at this time. She has already received potassium chloride down in the emergency room and I have ordered some IV magnesium. I have ordered a heart- healthy diet. 4. Code status. The patient does report to me that she would like to be DNR, though she is not willing to fill out the MOLST form, so I have advised her that at this time. We will refer as a full code and this will need to be reassessed tomorrow. 5. DVT prophylaxis. According to the DVT Risk Assessment, the patient scores a 5, putting her at high risk. I have ordered Lovenox. TIME SPENT: Approximately 60 minutes was spent on this admission, greater than half of that time spent [id number] with the patient and her family obtaining my history, performing my physical exam, and reviewing the plan of care. This case has been reviewed with my attending, Dr. Hilliard, who is in agreement with the plan of care. ARIANE TAYLOR, DRY SANDER [id number]/CPS #: [id number] OLGA
[2018-09-27 07:36] LABS: ABS Lymphocytes 1.6 10^3/ul (1.0-4.8); ABS Monocytes 0.7 10^3/ul (0-0.8); ABS Neutrophils 4.8 10^3/ul (1.5-7.7); Eosinophil % 0.5 %; Hematocrit 42 % (35-47); Hemoglobin 14.2 g/dL (12.0-16.0); Lymphocyte % 21.6 %; Mean Corpuscular HGB Conc 34 g/dL (31-36); Mean Corpuscular Hemoglobin 34 pg (27-31); Mean Corpuscular Volume 102 fL (80-97); Mean Platelet Volume 8.9 fL (7.4-10.4); Nucleated Red Blood Cells % 0.1; Platelet Count 174 10^3/uL (150-450); Red Blood Count 4.15 10^6 /uL (3.70-4.87); Red Cell Distribution Width 14 % (10-15); White Blood Count 7.2 10^3/uL (3.5-10.8)
[2018-09-27 07:55] LABS: ALT 130 U/L (7-52); AST 75 U/L (13-39); Albumin 3.5 g/dL (3.2-5.2); Albumin/Globulin Ratio 1.8 (1-3); Alkaline Phosphatase 65 U/L (34-104); Anion Gap 5 mmol/L (2-11); BUN/Creatinine Ratio 46.8 (8-20); Blood Urea Nitrogen 29 mg/dL (6-24); CO2 Carbon Dioxide 34 mmol/L (22-32); Calcium 8.7 mg/dL (8.6-10.3); Chloride 106 mmol/L (101-111); Cholesterol 176 mg/dL; EGFR African American 113.5 (>60); EGFR Non-African American 93.8 (>60); Glucose 98 mg/dL (70-100); LDL Cholesterol 110 mg/dL; Potassium 3.5 mmol/L (3.5-5.0); Sodium 145 mmol/L (135-145); Total Protein 5.5 g/dL (6.4-8.9); Triglycerides 99 mg/dL
[2018-09-27] MEDS: Multivitamins/Minerals TAB PO SCH (08:50)
[2018-09-27] MEDS ORDERED: Furosemide IV* 10 MG/ML VIAL (40 MG) IV SCH (09:00)
[2018-09-27 09:35] LABS: TSH (Thyroid Stimulating Horm) 0.08 mcIU/mL (0.34-5.60)
[2018-09-27 10:31] LABS: T4, Total 6.47 mcg/dL (6.09-12.23)
[2018-09-27 10:32] LABS: Troponin I 0.11 ng/mL (<0.04)
--- NOTE | 2018-09-27 10:52 | ECHO ---
*[facility]* [place] [address] Fax #: [phone] Transthoracic Echocardiogram Patient: Filiberto, Height: 64 in / Sarah Beth Pascual 162.6 cm : 1940 Weight: 109.8 lb / Study Date: 09/27/2018 49.9 kg Age: 77 BP: Gender: F BMI/BSA: 18.9 kg/m^2 HR: / 1.52 m^2 *Gift Basket Packer: * Hailee Cobb [facility] *Referring Physician: * Ariane Taylor *Reading Physician: * Tommie Goins MD Indications: Congestive Heart Failure. History: Osteoporosis. Risk factors: Hypertension. Conclusions Summary: 1. Left ventricle: The cavity size is normal. Wall thickness is mildly increased. Systolic function is normal. The estimated ejection fraction is 50-55%. Wall motion is normal; there are no regional wall motion abnormalities. 2. Left atrium: The atrium is mildly dilated. 3. Mitral valve: There is moderate regurgitation. 4. Pericardium, extracardiac: There is a sizable left pleural effusion. Study data: Transthoracic echocardiogram. Procedure: Transthoracic echocardiography was performed. Image quality was good. Complete 2D, spectral Doppler, and color flow Doppler. Patient status: Inpatient. Patient room number: 447-1. Rhythm: Normal sinus rhythm. Findings Left ventricle: The cavity size is normal. Wall thickness is mildly increased. Systolic function is normal. The estimated ejection fraction is 50-55%. Wall motion is normal; there are no regional wall motion abnormalities. Left ventricular diastolic function parameters are normal for the patient's age. Right ventricle: Well visualized. The cavity size is normal. Systolic function is normal. Ventricular septum: Well visualized. Left atrium: Well visualized. The atrium is mildly dilated. Right atrium: Well visualized. The atrium is normal in size. Atrial septum: Well visualized. Mitral valve: Well visualized. The leaflets are mildly thickened. No echocardiographic evidence for prolapse. There is moderate regurgitation. Aortic valve: Well visualized. The valve is trileaflet. The leaflets are normal thickness. There is no evidence of stenosis. There is no significant regurgitation. Tricuspid valve: Well visualized. The leaflets are normal thickness. There is trivial regurgitation. There is mild to moderate pulmonary hypertension. Pulmonic valve: Well visualized. The leaflets are normal thickness. There is no evidence of stenosis. There is trivial regurgitation. Aorta: The aorta is well visualized and normal size. The aortic root is not dilated. Pericardium: There is a trivial pericardial effusion. There is a sizable left pleural effusion. Pulmonary arteries: Well visualized. Systemic veins: Not well visualized. Measurements Left ventricle Value Ref Aortic valve Value Ref MAGGY, LAX 5.0 cm 3.8 - Peak v, S 1.71 m/sec ----- 5.2 VTI, S 32.0 cm ----- ESD, LAX (H) 5.0 cm 2.2 - Mean grad, S 7.0 mm Hg ----- 3.5 Peak grad, S 12.0 mm Hg ----- FS, LAX (L) 1 % LVOT/AV, VTI ratio 0.75 ----- PW, ED, LAX (H) 1.5 cm 0.6 - ANANTH, VTI 1.32 cm^2 ----- 0.9 ANANTH, Vmax 1.28 cm^2 ----- FS (L) 1 % Mid-wall FS 0 % -------- Mitral valve Value Ref PW, ED (H) 1.5 cm 0.6 - Peak E 0.89 m/sec ----- 0.9 Peak A 0.77 m/sec ----- PW/ID, ED 0.3 -------- Decel time 127 ms ----- E', lat lizbet, TDI (L) 7.3 cm/sec >=10.0 Peak grad, D 3.2 mm Hg -- --- E/e', lat lizbet, TDI 12 -------- Peak E/A ratio 1.2 ----- E', med lizbet, TDI (L) 4.8 cm/sec >=7.0 ERO, PISA 4.92 cm^2 -- --- E/e', med lizbet, TDI 19 -------- E', avg, TDI 6.1 cm/sec -------- Pulmonic valve Value Ref E/e', avg, TDI (H) 15 <=14 Peak v, S 1.01 m/sec -- --- Peak grad, S 4.0 mm Hg ----- LVOT Value Ref Diam, S 1.50 cm -------- Tricuspid valve Value Ref Area 1.8 cm^2 -------- TR peak v (H) 3.14 m/sec <=2.8 Peak albertina, S 1.24 m/sec -------- Peak RV-RA grad, S 39 mm Hg ----- VTI, S 23.9 cm -------- Max TR albertina 3.14 m/sec ----- Peak grad, S 6 mm Hg -------- Mean grad, S 2 mm Hg -------- Aortic root Value Ref SV 42 ml -------- Root diam 2.6 cm <3.8 SV/bsa 28 ml/m^2 -------- Ascending aorta Value Ref Ventricular septum Value Ref AAo AP diam, S 2.6 cm ----- IVS, ED 0.8 cm 0.6 - AAo AP diam/bsa, S 1.7 cm/m^2 ----- 0.9 Aortic arch Value Ref Right ventricle Value Ref Arch diam 2.5 cm ----- MAGGY, LAX 3.5 cm -------- MAGGY minor ax, A4C (H) 3.9 cm 1.9 - Decending aorta Value Ref mid 3.5 Susan peak albertina 0.62 m/sec ----- Left atrium Value Ref ML dim, A4C 4.9 cm -------- SI dim, A4C 6.0 cm -------- Right atrium Value Ref SI dim, ES 4.7 cm 3.4 - 5.3 ML dim, ES, A4C 3.3 cm 2.6 - 4.4 SI dim, ES, A4C 4.7 cm 3.4 - 5.3 Estimated RAP 8 mm Hg -------- Legend: (L) and (H) joaquim values outside specified reference range. Prepared and electronically signed by Tommie Goins MD 09/27/2018 10:51
[2018-09-27] MEDS ORDERED: Iohexol 350* (CONTRAST) 500 ML MDV IV ONE (10:54)
[2018-09-27] MEDS: Potassium Chlor TAB* 20 MEQ TAB.ER PO SCH (15:24)
[2018-09-27 15:41] LABS: Folate > 20.00 ng/mL (>3.99)
--- NOTE | 2018-09-27 16:38 | PN ---
Subjective Date of Service: 09/27/18 Interval History: Patient is feeling better today. Patient is still requiring oxygen and is MENA, but this is improving. Patient states the pain in her legs is improving. Patient denies CP, N/V, abdominal pain, dysuria, F/C, dizziness, or other pain. Patient was having some orthostasis yesterday. Patient can identify no recent high salt meals, changes in medications, or other provoking factors for CHF. Family History: Unchanged from Admission Social History: Unchanged from Admission Past Medical History: Unchanged from Admission Objective Active Medications: Acetaminophen (Tylenol Tab*) 650 mg PO Q4H PRN PRN Reason: FEVER/PAIN Enoxaparin Sodium (Lovenox(*)) [address] [facility] Last Admin: 09/26/18 23:27 Dose: 40 mg Furosemide (Lasix Iv*) [address] [facility] Last Admin: 09/27/18 08:50 Dose: 40 mg Multivitamins/Minerals (Theragran/Minerals Tab*) [address] [facility] Last Admin: 09/27/18 08:50 Dose: 1 tab Ondansetron HCl (Zofran Inj*) 4 mg IV Q4H PRN PRN Reason: NAUSEA/VOMITING Potassium Chloride (Klor Con Er Tab*) [address] [facility] Stop: 09/28/18 09:01 Last Admin: 09/27/18 15:24 Dose: 20 meq Vital Signs - 8 hr 09/27/18 09/27/18 08:36 15:40 Temperature 97.7 F 98.7 F Pulse Rate 94 98 Respiratory 14 20 Rate Blood Pressure 119/71 115/75 (mmHg) O2 Sat by Pulse 94 94 Oximetry Oxygen Devices in Use Now: Nasal Cannula Appearance: Patient is a 77yo female who appears stated age and is sitting in the bed in [facility]. Eyes: No Scleral Icterus, PERRLA Ears/Nose/Mouth/Throat: NL Teeth, Lips, Gums, Clear Oropharnyx, Mucous Membranes Moist Neck: NL Appearance and Movements; NL JVP, Trachea Midline Respiratory: Symmetrical Chest Expansion and Respiratory Effort, - - Diminished in B/L Lung bases Cardiovascular: NL Sounds; No Murmurs; No JVD, RRR, - - 2+ Pitting LE edema. Abdominal: NL Sounds; No Tenderness; No Distention, No Hepatosplenomegaly Lymphatic: No Cervical Adenopathy Extremities: No Clubbing, Cyanosis Skin: No Rash or Ulcers, No Nodules or Sclerosis Neurological: Alert and Oriented x 3, NL Sensation, NL Muscle Strength and Tone , - - CN II-XII intact. Result Diagrams: 09/27/18 07:23 09/27/18 07:23 Additional Lab and Data: Lab Results Assess/Plan/Problems-Billing Assessment: Patient is a 77yo female with a PMH only for HTN and OA who is admitted with 4 days of progressively worsening SOB and LE edema who is admitted for HFpEF exacerbation and is improving. - Patient Problems (1) (HFpEF) heart failure with preserved ejection fraction Current Visit: Yes Status: Acute Code(s): I50.30 - UNSPECIFIED DIASTOLIC ( CONGESTIVE) HEART FAILURE SNOMED Code(s): 669590795 Comment: - With LE Edema, Pulmonary Edema and EF of 50-55% - No wall motion abnormalities - Increased wall thickness and mild atrial dilitation - Lasix IV daily - Risk factor managment - Improving - Likely cause of elevated troponin due to demand ischemia, may benefit from outpatient ischemic evaluation. - Monitor I/O and daily weight. (2) Acute respiratory failure with hypoxia Current Visit: Yes Status: Acute Code(s): J96.01 - ACUTE RESPIRATORY FAILURE WITH HYPOXIA SNOMED Code(s): 46175353 Comment: - Due to CHF, improving subjectively, still needing O2. (3) HTN (hypertension) Current Visit: No Status: Chronic Code(s): I10 - ESSENTIAL (PRIMARY) HYPERTENSION SNOMED Code(s): 51574312 Comment: - Normotensive, continue Lasix (4) DVT prophylaxis Current Visit: Yes Status: Acute Code(s): Z29.9 - ENCOUNTER FOR PROPHYLACTIC MEASURES, UNSPECIFIED SNOMED Code(s): 601786214 Comment: - Lovenox SubQ (5) Full code status Current Visit: Yes Status: Acute Code(s): Z78.9 - OTHER SPECIFIED HEALTH STATUS SNOMED Code(s): 342054824 Status and Disposition: Inpatient for HFpEF exacerbation with acute hypoxia, hopeful D/C tomorrow.
[2018-09-27] MEDS: Atorvastatin* 40 MG TAB PO SCH (21:09)
[2018-09-27] MEDS: Enoxaparin(*) 40 MG/0.4 ML SYR SUBCUT SCH (21:09)
[2018-09-27] MEDS ORDERED: Diltiazem IV push/loading dose 5 MG/ML 5 ML vial (25 mg) IV SLOW PU ONE (22:39)
--- NOTE | 2018-09-28 00:14 | PN ---
Hospitalist Progress Note Date of Service: 09/28/18 Nursing called in the evening to report tachycardia into the 180s noted on telemetry. EKG ordered, showing new onset afib with a rate of 170. Ordered diltiazem 10mg IV x1, but 45 min after administration HR still in the 130-160s. Spoke with patient and daughter regarding diagnosis and treatment options. Will start diltiazem drip to gain rate control and hopefully transition to PO tomorrow. Also spoke about options for anticoagulation. Patient would like to start Xarelto which was ordered to start now. Will d/c Lovenox. Suspect this new onset CHF is secondary to afib as there is no systolic or diastolic dysfunction noted on echo. Question if this afib is r/t hyperthyroidism as her TSH was low. Patient may benefit from an Endocrinology consult.
[2018-09-28] MEDS ORDERED: Diltiazem 125 mg in 125 mL NS (continuous infusion) IV SCH (00:30)
[2018-09-28] MEDS: Rivaroxaban TAB(*) 20 MG TAB PO SCH ×2 (00:46→17:19)
[2018-09-28] MEDS ORDERED: Diltiazem DRIP* 100 MG/100 ML ADDV.BAG IV SCH (01:00)
[2018-09-28] MEDS ORDERED: Digoxin IV* 0.5 MG/2 ML AMP (0.25 MG/ML) IV SLOW PU ONE ×2 (02:13→08:00)
[2018-09-28 06:56] LABS: ABS Lymphocytes 1.3 10^3/ul (1.0-4.8); ABS Monocytes 0.9 10^3/ul (0-0.8); ABS Neutrophils 6.2 10^3/ul (1.5-7.7); Eosinophil % 0.2 %; Hematocrit 42 % (35-47); Hemoglobin 14.1 g/dL (12.0-16.0); Lymphocyte % 14.9 %; Mean Corpuscular HGB Conc 33 g/dL (31-36); Mean Corpuscular Hemoglobin 34 pg (27-31); Mean Corpuscular Volume 101 fL (80-97); Mean Platelet Volume 9.3 fL (7.4-10.4); Nucleated Red Blood Cells % 0.1; Platelet Count 169 10^3/uL (150-450); Red Blood Count 4.17 10^6 /uL (3.70-4.87); Red Cell Distribution Width 14 % (10-15); White Blood Count 8.5 10^3/uL (3.5-10.8)
[2018-09-28 07:10] LABS: BUN/Creatinine Ratio 47.2 (8-20); Calcium 8.5 mg/dL (8.6-10.3); EGFR African American 136.1 (>60); EGFR Non-African American 112.5 (>60); Magnesium 1.8 mg/dL (1.9-2.7); Potassium 3.5 mmol/L (3.5-5.0)
[2018-09-28] MEDS ORDERED: Magnesium Sulfate 2 GM IV* 2 GM/50 ML BAG IVPB ONE (08:00)
[2018-09-28] MEDS ORDERED: Metoprolol Tartrate TAB* 25 MG PO ONE (08:39)
[2018-09-28 09:00] LABS: Thyroid Peroxidase Antibodies 0.51 IU/mL (<9)
[2018-09-28] MEDS ORDERED: Furosemide IV* 10 MG/ML VIAL (40 MG) IV SLOW PU SCH (09:00)
[2018-09-28] MEDS: Potassium Chlor TAB* 20 MEQ TAB.ER PO SCH (09:46)
[2018-09-28] MEDS: Multivitamins/Minerals TAB PO SCH (09:47)
[2018-09-28] MEDS ORDERED: Metoprolol Succinate XL TAB* 50 MG PO ONE (11:12)
[2018-09-28] MEDS ORDERED: Furosemide IV* 10 MG/ML 2 ML VIAL (20 MG) IV SLOW PU ONE (13:20)
--- NOTE | 2018-09-28 15:22 | PN ---
Subjective Date of Service: 09/28/18 Interval History: Patient went into symptomatic Afib with RVR overnight. Patient felt a little lightheaded and had a "Click" in her throat which she normally associates with high blood pressure. Patient denies tremor, F/C, N/V, abdominal pain, CP, Diarrhea, or other pain. Patient is persistently SOB and needing oxygen, but is improving. Family History: Unchanged from Admission Social History: Unchanged from Admission Past Medical History: Unchanged from Admission Objective Active Medications: Acetaminophen (Tylenol Tab*) 650 mg PO Q4H PRN PRN Reason: FEVER/PAIN Atorvastatin Calcium (Lipitor*) 40 mg PO 2100 [facility] Last Admin: 09/27/18 21:09 Dose: 40 mg Metoprolol Succinate (Toprol Xl Tab*) 50 mg PO DAILY [facility] Multivitamins/Minerals (Theragran/Minerals Tab*) 1 tab PO DAILY [facility] Last Admin: 09/28/18 09:47 Dose: 1 tab Ondansetron HCl (Zofran Inj*) 4 mg IV Q4H PRN PRN Reason: NAUSEA/VOMITING Rivaroxaban (Xarelto(*)) 20 mg PO QPM [facility] Last Admin: 09/28/18 00:46 Dose: 20 mg Vital Signs - 8 hr 09/28/18 09/28/18 09/28/18 07:25 08:00 08:36 Temperature 98.1 F Pulse Rate 96 Respiratory 16 16 Rate Blood Pressure 101/60 (mmHg) O2 Sat by Pulse 96 Oximetry 09/28/18 09/28/18 09/28/18 09:36 10:24 11:10 Temperature Pulse Rate 111 Respiratory Rate Blood Pressure 95/64 100/48 (mmHg) O2 Sat by Pulse Oximetry 09/28/18 09/28/18 12:09 12:16 Temperature 97.6 F Pulse Rate Respiratory Rate Blood Pressure 101/49 (mmHg) O2 Sat by Pulse 96 Oximetry Oxygen Devices in Use Now: None Appearance: Patient is a 77yo female who appears stated age and is sitting in the bed in [facility]. Eyes: No Scleral Icterus, PERRLA Ears/Nose/Mouth/Throat: NL Teeth, Lips, Gums, Clear Oropharnyx, Mucous Membranes Moist Neck: NL Appearance and Movements; NL JVP, Trachea Midline Respiratory: Symmetrical Chest Expansion and Respiratory Effort, - - Diminished in bases. Cardiovascular: NL Sounds; No Murmurs; No JVD, RRR, - - 1+ B/L LE edema. Irregularly irregular rhythm. Abdominal: NL Sounds; No Tenderness; No Distention, No Hepatosplenomegaly Lymphatic: No Cervical Adenopathy Extremities: No Clubbing, Cyanosis Skin: No Rash or Ulcers, No Nodules or Sclerosis Neurological: Alert and Oriented x 3, NL Sensation, NL Muscle Strength and Tone , - - CN II-XII intact. Result Diagrams: 09/28/18 06:22 09/28/18 06:22 Additional Lab and Data: Lab Results Assess/Plan/Problems-Billing Assessment: Patient is a 77yo female with a PMH only for HTN and OA who is admitted with 4 days of progressively worsening SOB and LE edema who is admitted for HFpEF exacerbation and is improving but developed Raipid Afib overnight, now improving. - Patient Problems (1) (HFpEF) heart failure with preserved ejection fraction Current Visit: Yes Status: Acute Code(s): I50.30 - UNSPECIFIED DIASTOLIC ( CONGESTIVE) HEART FAILURE SNOMED Code(s): 483611234 Comment: - With LE Edema, Pulmonary Edema and EF of 50-55% - No wall motion abnormalities - Increased wall thickness and mild atrial dilitation - Lasix IV daily on hold for right now - Risk factor managment - Improving - Likely cause of elevated troponin due to demand ischemia, may benefit from outpatient ischemic evaluation. - Monitor I/O and daily weight. (2) Atrial fibrillation with RVR Current Visit: Yes Status: Acute Code(s): I48.91 - UNSPECIFIED ATRIAL FIBRILLATION SNOMED Code(s): 262107252429558 Comment: - Started overnight. Mildly symptomatic - HR high of 180 - Started on Diltiazem, now stopped - Loaded with Digoxin. - Started Metoprolol due to hyperthyroidism - Anticoagulation with Xarelto. (3) Acute respiratory failure with hypoxia Current Visit: Yes Status: Acute Code(s): J96.01 - ACUTE RESPIRATORY FAILURE WITH HYPOXIA SNOMED Code(s): 71052092 Comment: - Due to CHF, improving subjectively, still needing O2. (4) Thyroid nodule Current Visit: No Status: Acute Code(s): E04.1 - NONTOXIC SINGLE THYROID NODULE SNOMED Code(s): 161634239 Comment: - Negative FNA - New diagnosis of subclinical hyperthyroidism - Likely contributing to Afib with RVR - Pending Endocrinology evaluation for timing of starting Methimazole - Beta Neptali started. (5) HTN (hypertension) Current Visit: No Status: Chronic Code(s): I10 - ESSENTIAL (PRIMARY) HYPERTENSION SNOMED Code(s): 60161698 Comment: - Borderline low BP - Hold Lasix and Continue Metoprolol for rate control (6) DVT prophylaxis Current Visit: Yes Status: Acute Code(s): Z29.9 - ENCOUNTER FOR PROPHYLACTIC MEASURES, UNSPECIFIED SNOMED Code(s): 660186928 Comment: - Xarelto (7) Full code status Current Visit: Yes Status: Acute Code(s): Z78.9 - OTHER SPECIFIED HEALTH STATUS SNOMED Code(s): 952010939 Status and Disposition: Inpatient for HFpEF exacerbation with acute hypoxia and new onset Afib. Clinical course to dictate discharge.
[2018-09-28] MEDS: Atorvastatin* 40 MG TAB PO SCH (20:11)
[2018-09-29 05:23] LABS: ABS Lymphocytes 1.4 10^3/ul (1.0-4.8); ABS Monocytes 0.8 10^3/ul (0-0.8); ABS Neutrophils 4.7 10^3/ul (1.5-7.7); Eosinophil % 0.7 %; Hematocrit 42 % (35-47); Hemoglobin 13.8 g/dL (12.0-16.0); Lymphocyte % 19.9 %; Mean Corpuscular HGB Conc 33 g/dL (31-36); Mean Corpuscular Hemoglobin 34 pg (27-31); Mean Corpuscular Volume 101 fL (80-97); Mean Platelet Volume 9.1 fL (7.4-10.4); Nucleated Red Blood Cells % 0.1; Platelet Count 153 10^3/uL (150-450); Red Blood Count 4.09 10^6 /uL (3.70-4.87); Red Cell Distribution Width 14 % (10-15)
[2018-09-29 05:40] LABS: BUN/Creatinine Ratio 39.6 (8-20); Calcium 8.4 mg/dL (8.6-10.3); EGFR African American 136.1 (>60); EGFR Non-African American 112.5 (>60); Magnesium 1.9 mg/dL (1.9-2.7); Potassium 3.7 mmol/L (3.5-5.0)
[2018-09-29] MEDS ORDERED: Digoxin TAB* 0.125 MG PO ONE (07:08)
[2018-09-29] MEDS ORDERED: Potassium Chloride* LIQUID 20 MEQ/15 ML UDC PO ONE (07:08)
[2018-09-29] MEDS ORDERED: Furosemide IV* 10 MG/ML 2 ML VIAL (20 MG) IV SLOW PU ONE (07:09)
[2018-09-29] MEDS: Multivitamins/Minerals TAB PO SCH (08:45)
[2018-09-29] MEDS ORDERED: Metoprolol Succinate XL TAB* 50 MG PO SCH (09:00)
[2018-09-29] MEDS ORDERED: Potassium Chlor TAB* 20 MEQ TAB.ER PO ONE (09:00)
--- NOTE | 2018-09-29 10:35 | PN ---
Subjective - Subjective Reason for Note: Consultation Note History: Endocrinology consultation: multinodular goiter with subclinical hyperthyroidism I saw this patient 05/02/2018 at [facility]. She had a multinodular goiter. She had 2 biopsied and they were both benign. She was admitted on this occasion with CHF and atrial fibrillation. Her TSH is 0.08 and her T3 is 121. This is the pattern of subclinical hyperthyroidism. She is not taking amiodarone. Active Problems: Active Problems (HFpEF) heart failure with preserved ejection fraction (Acute) I50.30 - With LE Edema, Pulmonary Edema and EF of 50-55% - No wall motion abnormalities - Increased wall thickness and mild atrial dilitation - Lasix IV daily on hold for right now - Risk factor managment - Improving - Likely cause of elevated troponin due to demand ischemia, may benefit from outpatient ischemic evaluation. - Monitor I/O and daily weight. Acute respiratory failure with hypoxia (Acute) J96.01 - Due to CHF, improving subjectively, still needing O2. Atrial fibrillation with RVR (Acute) I48.91 - Started overnight. Mildly symptomatic - HR high of 180 - Started on Diltiazem, now stopped - Loaded with Digoxin. - Started Metoprolol due to hyperthyroidism - Anticoagulation with Xarelto. DVT prophylaxis (Acute) Z29.9 - Xarelto Full code status (Acute) Z78.9 Multinodular goiter (Acute) E04.2 Subclinical hyperthyroidism (Acute) E05.90 Current Medications: Current Medications Acetaminophen (Tylenol Tab*) 650 mg PO Q4H PRN PRN Reason: FEVER/PAIN Atorvastatin Calcium (Lipitor*) 40 mg PO 2100 [facility] Last Admin: 09/28/18 20:11 Dose: 40 mg Digoxin (Lanoxin Tab*) 0.125 mg PO 1700 [facility] Metoprolol Succinate (Toprol Xl Tab*) 50 mg PO DAILY [facility] Last Admin: 09/29/18 08:45 Dose: 50 mg Multivitamins/Minerals (Theragran/Minerals Tab*) 1 tab PO DAILY [facility] Last Admin: 09/29/18 08:45 Dose: 1 tab Ondansetron HCl (Zofran Inj*) 4 mg IV Q4H PRN PRN Reason: NAUSEA/VOMITING Rivaroxaban (Xarelto(*)) 20 mg PO QPM [facility] Last Admin: 09/28/18 17:19 Dose: 20 mg - Review of Systems Thyroid: Positive: Goiter, Thyroid Nodule, Cold Intolerance, Palpitations Negative: Heat Intolerance, Sweatiness, Tremor, Frequent Defecation, Constipation, Weight Loss, Weight Gain, Change in Skin/Hair Home Medications: Home Medications Medication Instructions Recorded Confirmed Type [place]-3 Fatty Acids/Fish Oil 2 cap PO DAILY 04/30/18 09/26/18 History [[place] 3] Multivit with Calcium,Iron,Min 1 each PO DAILY 05/02/18 09/26/18 History [Multiple Vitamins For Women] Allergies: Allergies Allergy/AdvReac Type Severity Reaction Status Date / Time No Known Allergies Allergy Verified 09/26/18 16:12 Objective - Vital Signs Vital Signs: Vital Signs 09/28/18 09/28/18 09/28/18 11:10 12:09 12:16 Temperature 97.6 F Pulse Rate Respiratory Rate Blood Pressure 100/48 101/49 (mmHg) O2 Sat by Pulse 96 Oximetry 09/28/18 09/28/18 09/28/18 15:56 20:00 20:01 Temperature 98.6 F 98.2 F Pulse Rate 90 101 Respiratory 18 16 18 Rate Blood Pressure 101/51 100/75 (mmHg) O2 Sat by Pulse 93 18 Oximetry 09/28/18 09/29/18 09/29/18 20:02 00:27 03:21 Temperature 97.5 F 98.4 F Pulse Rate 100 96 Respiratory 18 18 Rate Blood Pressure 112/61 100/63 (mmHg) O2 Sat by Pulse 95 97 94 Oximetry 09/29/18 09/29/18 07:28 08:44 Temperature 97.7 F Pulse Rate 84 111 Respiratory 16 Rate Blood Pressure 119/88 (mmHg) O2 Sat by Pulse 95 Oximetry - Intake and Output Intake and Output: Intake & Output 09/26/18 09/27/18 09/28/18 09/29/18 11:59 11:59 11:59 11:59 Intake Total 495 960 530 Output Total 2100 490 Balance -1605 960 40 Weight 107 lb 115 lb 4 oz 114 lb 12.8 oz Intake: IV Fluids 105 50 Magnesium 105 50 Oral 390 960 480 Output: Urine 2100 490 Other: # Voids 1 2 ADLs: Meal Record Start: 09/26/18 22: 08 Freq: DAILY@0900,1400,1800 Status: Active Protocol: Created 09/26/18 22:08 System (Rec: 09/26/18 22:08 System TELE-C06) Document 09/27/18 09:00 [id number] (Rec: 09/27/18 09:52 [id number] TELE-C01) Document 09/27/18 14:00 [id number] (Rec: 09/27/18 14:07 [id number] TELE-C01) Document 09/27/18 18:00 [id number] (Rec: 09/27/18 20:01 [id number] TELE-C07) Document 09/28/18 09:00 [id number] (Rec: 09/28/18 12:06 [id number] TELE-C09) Document 09/28/18 14:00 [id number] (Rec: 09/28/18 14:43 [id number] TELE-C09) Document 09/28/18 18:00 [id number] (Rec: 09/28/18 18:25 [id number] CRM-C12) Intake and Output Start: 09/26/18 16: 16 Freq: Status: Active Protocol: Created 09/26/18 16:16 System (Rec: 09/26/18 16:16 System ED-C24) Document 09/26/18 20:29 [id number] (Rec: 09/26/18 20:30 [id number] ED-C31) Document 09/26/18 22:19 [id number] (Rec: 09/26/18 22:20 [id number] ED-C20) Intake and Output Start: 09/26/18 22: 08 Freq: DAILY@0600,1400,2200 Status: Active Protocol: Created 09/26/18 22:08 System (Rec: 09/26/18 22:08 System TELE-C06) Document 09/27/18 06:00 [id number] (Rec: 09/27/18 06:26 [id number] TELE-C05) Document 09/27/18 11:35 [id number] (Rec: 09/27/18 11:35 [id number] TELE-C01) Document 09/27/18 13:15 KMV0044 (Rec: 09/27/18 13:16 [id number] TELE-C05) Document 09/27/18 21:34 [id number] (Rec: 09/27/18 21:36 DOT5598 TELE-C07) Document 09/28/18 06:00 [id number] (Rec: 09/28/18 06:31 HEH1197 TELE-C07) Document 09/28/18 14:00 [id number] (Rec: 09/28/18 14:44 IRI7546 TELE-C09) Document 09/28/18 22:00 [id number] (Rec: 09/28/18 22:56 [id number] TELE-C07) Document 09/29/18 06:00 [id number] (Rec: 09/29/18 06:16 [id number] TELE-C07) - Physical Exam General: Yes Cyanosis, No Anemia, No Jaundice, No Clubbing -: No Tremor, Yes Goiter, Yes Thyroid Nodule - right 2 cm, No Thyroid Bruit, No Thyroid Tenderness, No Hoarseness, No Cervical adenopathy, No Supraclav. adenopathy, No Proptosis, No Conjunctival Injection, No Lid Lag, No Periorbital Edema, No Dysconjugate Eye Movement Lungs and Chest: Yes: Chest Expansion Symetrica, Vessicular Breath Sounds, Crackles. No: Chest Expansion Full, Percussion Note Resonant - hyperresonant, Wheezes, Respiratory Distress, Use of Accessory Muscles Heart Rate and Rhythm: Irregular JVP: Elevated Additional Cardiovascular: Yes: Normal Heart Sounds, Pedal Edema. No: Heart Murmur Results - Results Lab Results: Laboratory Results - last 24 hr 09/29/18 09/29/18 05:10 05:10 WBC 7.0 RBC 4.09 Hgb 13.8 Hct 42 MCV 101 H MCH 34 H MCHC 33 RDW 14 Plt Count 153 MPV 9.1 Neut % (Auto) 66.9 Lymph % (Auto) 19.9 Logan % (Auto) 11.9 Eos % (Auto) 0.7 Baso % (Auto) 0.6 Absolute Neuts (auto) 4.7 Absolute Lymphs (auto) 1.4 Absolute Monos (auto) 0.8 Absolute Eos (auto) 0.0 Absolute Basos (auto) 0.0 Absolute Nucleated RBC 0.0 Nucleated RBC % 0.1 Sodium 143 Potassium 3.7 Chloride 105 Carbon Dioxide 35 H Anion Gap 3 BUN 21 Creatinine 0.53 Est GFR ( Amer) 136.1 Est GFR (Non-Af Amer) 112.5 BUN/Creatinine Ratio 39.6 H Glucose 102 H Calcium 8.4 L Magnesium 1.9 Laboratory Tests 09/26/18 09/27/18 09/29/18 18:41 07:23 05:10 WBC 7.0 Hgb 13.8 Hct 42 MCV 101 H Plt Count 153 Sodium Potassium Chloride Carbon Dioxide Anion Gap BUN Creatinine Glucose Calcium B-Natriuretic Peptide > 1300 H Vitamin B12 912 Folate > 20.00 TSH 0.08 L Thyroxine (T4) 6.47 Total T3 121 09/29/18 05:10 WBC Hgb Hct MCV Plt Count Sodium 143 Potassium 3.7 Chloride 105 Carbon Dioxide 35 H Anion Gap 3 BUN 21 Creatinine 0.53 Glucose 102 H Calcium 8.4 L B-Natriuretic Peptide Vitamin B12 Folate TSH Thyroxine (T4) Total T3 Radiology Results: Patient Name: GRAYSON BONILLA Medical Record#: [id number] Ordering Physician: Antonio NAIK Acct.#: [id number] : 1940 Age: 77 Sex: F Location: [address] [place] [address]/TELEMETRY Exam Date: 09/29/18853 ADM Status: ADM IN Order Information: CHEST PA & LAT 2 VWS Accession Number: [id number] CPT: 79394 HISTORY: Monitor Pulmonary Edema/ Pleural Effusion COMPARISONS: September 26, 2018 VIEWS: 3: Frontal and lateral views of the chest. FINDINGS: CARDIOMEDIASTINAL SILHOUETTE: The cardiomediastinal silhouette is normal. TRINO: The trino are normal. PLEURA: There are small bilateral pleural effusions, greater on the left on the right. LUNG PARENCHYMA: There is hyperinflation with flattening of the diaphragm and expansion of the AP diameter of the chest. There is patchy opacification lung bases bilaterally. ABDOMEN: The upper abdomen is clear. There is no subphrenic gas. BONES AND SOFT TISSUES: No bone or soft tissue abnormalities are noted. Surgical clips are noted along the neck lower neck. OTHER: None. IMPRESSION: 1. COPD. 2. LEFT GREATER THAN THE RIGHT BILATERAL PLEURAL EFFUSIONS WITH BIBASILAR ATELECTASIS VERSUS CONSOLIDATION. <Electronically signed by Olu Fair MD in [place]> 09/29/18936 Dictated By: Olu Fair MD Dictated Date/Time: 09/29/18936 Transcribed Date/Time: 09/29/18935 Copy to: Patient Name: GRAYSON BONILLA Medical Record#: [id number] Ordering Physician: Antonio NAIK Acct.#: [id number] : 1940 Age: 77 Sex: F Location: [address] [place] [address]/TELEMETRY Exam Date: 09/27/18 1006 ADM Status: ADM IN Order Information: CTA CHEST Accession Number: [id number] CPT: 30585 INDICATION: Shortness of breath evaluate for pulmonary embolism. COMPARISON: Comparison is made with a prior chest x-ray study from September 26, 2018. TECHNIQUE: A CT angiogram of the chest was performed with intravenous following intravenous injection of 57 ml of Omnipaque 350 nonionic contrast. Contiguous axial sections were obtained from the lung apices through the lung bases. Images were reconstructed in the coronal and sagittal planes. FINDINGS: PULMONARY ARTERIES: There is relatively homogeneous opacification of the pulmonary arteries. No intraluminal filling defect or pulmonary embolism is seen. The exam is slightly limited in the left lower lobe due to motion artifact. There is prominence of the central pulmonary arteries suggesting the possibility of pulmonary artery hypertension. HEART: The heart is moderately enlarged. There are coronary calcifications present. THORACIC AORTA: There is suboptimal opacification of the thoracic aorta. The thoracic aorta is normal in caliber without aneurysm. LUNGS: There are small to moderate-sized bilateral pleural effusions. There small dependent bilateral lower lobe infiltrates most consistent with atelectasis. There is mild prominence of the interstitial markings suggestive of congestive heart failure. MEDIASTINUM: No significant enlarged mediastinal or hilar lymph nodes are seen. ABDOMEN: There is mild prominence of the calyces and renal pelvises suggesting the possibility of mild bilateral hydronephrosis. BONES: There is an exaggerated dorsal kyphosis. No fracture is seen. IMPRESSION: 1. SLIGHTLY LIMITED EXAM, NO EVIDENCE FOR PULMONARY EMBOLISM. 2. FINDINGS SUGGESTIVE OF CONGESTIVE HEART FAILURE. 3. PROMINENCE OF THE CENTRAL PULMONARY ARTERIES RAISING THE POSSIBILITY OF PULMONARY ARTERY HYPERTENSION. 4. MILD PROMINENCE OF THE RENAL COLLECTING SYSTEM SUGGESTIVE OF MILD BILATERAL HYDRONEPHROSIS. <Electronically signed by Bert Muhammad MD in [place]> 09/27/18 1416 Dictated By: Bert Muhammad MD Dictated Date/Time: 09/27/18 141 Transcribed Date/Time: 09/27/18 1405 This report is only to be considered final once signed by the Provider(s) as displayed in the "<Electronically Signed by >" field (s). Absence of a signature indicates the report is in a draft status and still needs to be finalized. In the event this document was created by someone other than the signing Provider, the individual initiating the document will be listed in the "Entered by:" or "Dictated by:" yoon. 1 of 2 Assessment - Problem List Assessment: Patient Problems (HFpEF) heart failure with preserved ejection fraction (Acute) Acute respiratory failure with hypoxia (Acute) Atrial fibrillation with RVR (Acute) DVT prophylaxis (Acute) Full code status (Acute) Multinodular goiter (Acute) Subclinical hyperthyroidism (Acute) Cerebral atherosclerosis (Chronic) Cigarette smoker (Chronic) HTN (hypertension) (Chronic) Osteoarthritis (Chronic) Vitamin D deficiency (Chronic) Plan: Subclinical hyperthyroidism and multinodular goiter: She has a suppressed TSH - though it is not 0.0. Her TFTs are within normal range. Differential diagnosis: * Toxic multinodular goiter with some warm nodules * euthyroid sick syndrome * Autoimmune thyroid disease * Iodine related TSH suppression - this is unlikely as she had her CTA the same day as her TFTs. I note that this may play a role in the next few weeks It would be helpful to have her previous TFTs from Dr. Hoff's office. I will start her on methimazole 2.5 mg qdaily and follow up as an out patient Atrial fibrillation: There is an association of increased risk of atrial fibrillation with subclinical hyperthyroidism. I suspect this is a minor contributor with this patient. I will follow up with this patient as an outpatient with TFTs in 4 - 6 weeks.
--- NOTE | 2018-09-29 11:50 | PN ---
Subjective Date of Service: 09/29/18 Interval History: Patient is feeling intermittently SOB. Patient denies CP, N/V, abdominal pain, changes in vision, palpitations, dizziness on standing, or other pain. Patient continues to desire to go home. Family History: Unchanged from Admission Social History: Unchanged from Admission Past Medical History: Unchanged from Admission Objective Active Medications: Acetaminophen (Tylenol Tab*) 650 mg PO Q4H PRN PRN Reason: FEVER/PAIN Atorvastatin Calcium (Lipitor*) 40 mg PO 2100 [facility] Last Admin: 09/28/18 20:11 Dose: 40 mg Digoxin (Lanoxin Tab*) 0.125 mg PO 1700 [facility] Methimazole (Tapazole Tab*) 2.5 mg PO DAILY [facility] Metoprolol Succinate (Toprol Xl Tab*) 50 mg PO DAILY [facility] Last Admin: 09/29/18 08:45 Dose: 50 mg Multivitamins/Minerals (Theragran/Minerals Tab*) 1 tab PO DAILY [facility] Last Admin: 09/29/18 08:45 Dose: 1 tab Ondansetron HCl (Zofran Inj*) 4 mg IV Q4H PRN PRN Reason: NAUSEA/VOMITING Rivaroxaban (Xarelto(*)) 20 mg PO QPM [facility] Last Admin: 09/28/18 17:19 Dose: 20 mg Vital Signs - 8 hr 09/29/18 09/29/18 07:28 08:44 Temperature 97.7 F Pulse Rate 84 111 Respiratory 16 Rate Blood Pressure 119/88 (mmHg) O2 Sat by Pulse 95 Oximetry Oxygen Devices in Use Now: Nasal Cannula Appearance: Patient is a 77yo female who appears stated age and is sitting in the bed in [facility]. Eyes: No Scleral Icterus, PERRLA Ears/Nose/Mouth/Throat: NL Teeth, Lips, Gums, Clear Oropharnyx, Mucous Membranes Moist Neck: NL Appearance and Movements; NL JVP, Trachea Midline Respiratory: Symmetrical Chest Expansion and Respiratory Effort, Clear to Auscultation, - - Diminished in Left lung base. Cardiovascular: NL Sounds; No Murmurs; No JVD, RRR, - - 1+ B/L LE Edema. Abdominal: NL Sounds; No Tenderness; No Distention, No Hepatosplenomegaly Lymphatic: No Cervical Adenopathy Extremities: No Edema, No Clubbing, Cyanosis Skin: No Rash or Ulcers, No Nodules or Sclerosis Neurological: Alert and Oriented x 3, NL Sensation, NL Muscle Strength and Tone , - - CN II-XII intact. Result Diagrams: 09/29/18 05:10 09/29/18 05:10 Additional Lab and Data: Lab Results Assess/Plan/Problems-Billing Assessment: Patient is a 77yo female with a PMH only for HTN and OA who is admitted with 4 days of progressively worsening SOB and LE edema who is admitted for HFpEF exacerbation and is improving but developed Raipid Afib overnight, now improving. - Patient Problems (1) (HFpEF) heart failure with preserved ejection fraction Current Visit: Yes Status: Acute Code(s): I50.30 - UNSPECIFIED DIASTOLIC ( CONGESTIVE) HEART FAILURE SNOMED Code(s): 726086229 Comment: - With LE Edema, Pulmonary Edema and EF of 50-55% - No wall motion abnormalities - Increased wall thickness and mild atrial dilitation - Resume IV Lasix, Caution with IV lasix and Digoxin - Risk factor managment - Improving - Likely cause of elevated troponin due to demand ischemia, may benefit from outpatient ischemic evaluation. - Monitor I/O and daily weight. (2) Atrial fibrillation with RVR Current Visit: Yes Status: Acute Code(s): I48.91 - UNSPECIFIED ATRIAL FIBRILLATION SNOMED Code(s): 523527222787999 Comment: - Mildly symptomatic - HR high of 180 - Started on Diltiazem, now stopped - Loaded with Digoxin. Continue .125 daily. Monitor for hypokalemia with diuresis. - Started Metoprolol due to hyperthyroidism - Anticoagulation with Xarelto. (3) Acute respiratory failure with hypoxia Current Visit: Yes Status: Acute Code(s): J96.01 - ACUTE RESPIRATORY FAILURE WITH HYPOXIA SNOMED Code(s): 82208564 Comment: - Due to CHF, No improvement, still needing O2. - Likely some degree of underlying COPD with extensive smoking history. (4) Thyroid nodule Current Visit: No Status: Resolved Code(s): E04.1 - NONTOXIC SINGLE THYROID NODULE SNOMED Code(s): 108149794 Comment: - Negative FNA - New diagnosis of subclinical hyperthyroidism - Likely contributing to Afib with RVR to minor degree - Appreciate Endocrinology evaluation, start Methimazole - Beta Neptali started. (5) HTN (hypertension) Current Visit: No Status: Chronic Code(s): I10 - ESSENTIAL (PRIMARY) HYPERTENSION SNOMED Code(s): 55657464 Comment: - Borderline low BP improving - Continue Metoprolol for rate control - Resume lasix as tolerated. (6) DVT prophylaxis Current Visit: Yes Status: Acute Code(s): Z29.9 - ENCOUNTER FOR PROPHYLACTIC MEASURES, UNSPECIFIED SNOMED Code(s): 048630231 Comment: - Xarelto (7) Full code status Current Visit: Yes Status: Acute Code(s): Z78.9 - OTHER SPECIFIED HEALTH STATUS SNOMED Code(s): 686632555 Status and Disposition: Inpatient for HFpEF exacerbation with acute hypoxia and new onset Afib. Clinical course to dictate discharge. Hopeful D/C in AM.
[2018-09-29] MEDS ORDERED: Metoprolol Succinate XL TAB* 25 MG PO ONE (16:00)
[2018-09-29] MEDS ORDERED: Digoxin TAB* 0.125 MG PO SCH (17:00)
[2018-09-29] MEDS: Rivaroxaban TAB(*) 20 MG TAB PO SCH (17:38)
[2018-09-29] MEDS: Atorvastatin* 40 MG TAB PO SCH (19:26)
[2018-09-30 05:46] LABS: ABS Eosinophils 0.1 10^3/ul (0-0.6); ABS Lymphocytes 1.4 10^3/ul (1.0-4.8); ABS Monocytes 0.8 10^3/ul (0-0.8); ABS Neutrophils 4.6 10^3/ul (1.5-7.7); Hematocrit 42 % (35-47); Hemoglobin 14.2 g/dL (12.0-16.0); Lymphocyte % 20.2 %; Mean Corpuscular HGB Conc 34 g/dL (31-36); Mean Corpuscular Hemoglobin 35 pg (27-31); Mean Corpuscular Volume 102 fL (80-97); Mean Platelet Volume 9.6 fL (7.4-10.4); Nucleated Red Blood Cells % 0.1; Platelet Count 161 10^3/uL (150-450); Red Blood Count 4.08 10^6 /uL (3.70-4.87); Red Cell Distribution Width 14 % (10-15); White Blood Count 6.8 10^3/uL (3.5-10.8)
[2018-09-30 06:06] LABS: Calcium 8.5 mg/dL (8.6-10.3); Magnesium 1.8 mg/dL (1.9-2.7); Potassium 4.1 mmol/L (3.5-5.0)
[2018-09-30 06:11] LABS: BUN/Creatinine Ratio 48.3 (8-20); EGFR African American 122.6 (>60); EGFR Non-African American 101.3 (>60)
[2018-09-30 06:12] LABS: Digoxin 1.1 ng/ml (0.8-2.0)
[2018-09-30] MEDS ORDERED: Metoprolol Succinate XL TAB* 25 MG PO SCH (09:00)
[2018-09-30] MEDS ORDERED: Methimazole TAB* 5 MG PO SCH (09:00)
[2018-09-30] MEDS ORDERED: Magnesium Sulfate 1 GM IV* 1 GM/100 ML BAG IV ONE (09:00)
[2018-09-30] MEDS: Multivitamins/Minerals TAB PO SCH (09:02)
[2018-09-30 09:40] VITALS: BP 101/72
--- NOTE | 2018-09-30 12:43 | DS ---
CC: Dr. Venessa Hoff; Dr. Mark Morin * DISCHARGE SUMMARY: DATE OF ADMISSION: 09/26/18 DATE OF DISCHARGE: 09/30/18 PRIMARY CARE PROVIDER: Dr. Venessa Hoff. MY ATTENDING WHILE IN THE HOSPITAL: Dr. Shweta Hilliard.* (DICTATED BY GUMARO MAXWELL) OUTPATIENT BARREL R[employer] MATTING MACHINE OPERATOR: Dr. Mark Morin. PRIMARY DISCHARGE DIAGNOSES: 1. Heart failure, preserved ejection fraction. 2. Subclinical hyperthyroidism likely due to multinodular goiter. 3. Atrial fibrillation with rapid ventricular response, resolved. SECONDARY DISCHARGE DIAGNOSES: 1. Hypertension. 2. Osteoarthritis. STUDIES DONE WHILE IN THE HOSPITAL: Electrocardiogram from 09/26/18 shows sinus tachycardia, early repolarization in V1 and V2, T-wave flattening in the lateral leads. Poor quality study. QTc of 467. Normal axis. No previous echocardiogram to compare. Chest x-ray from 09/26/18 read as CHF associated pleural effusions. Venous Doppler study from 09/26/18 read as poor visualization of the calf veins bilaterally due to edema, uncontrollable movement and tenderness and DVT is difficult to exclude in the calves, otherwise negative bilateral lower extremity venous Duplex. Exam without evidence of deep vein thrombosis above the knees. Transthoracic echocardiogram on 09/26/18 read as left ventricle cavity size normal. Wall thickness mildly increased. Estimated ejection fraction is 50% to 55%. Left atrium is mildly dilated. Moderate mitral regurgitation. Large left-sided pleural effusion. Chest thorax CTA from 09/27/18 read as slightly limited exam. No evidence of pulmonary embolism. Findings suggestive of congestive heart failure, prominence of central pulmonary arteries raising the possibility of pulmonary arterial hypertension, mild prominence of collecting system suggestive of bilateral hydronephrosis. Chest x-ray from 09/28/18 read as COPD left greater than the right, bilateral pleural effusions with bibasilar atelectasis versus consolidation to this provider's interpretation. Repeat chest x-ray showed improvement in pulmonary edema and slightly decreased size pleural effusion. EKG from 09/28/18, showed atrial fibrillation rate of 171, QTc of 468. T-wave inversion in V5 and V6. No significant changes from previous exam. MEDICATIONS AT DISCHARGE: 1. Lipitor 40 mg p.o. nightly. 2. Tylenol 650 mg p.o. q.4 hours as needed. 3. Digoxin 0.125 mg p.o. nightly. 4. Lasix 20 mg p.o. daily. 5. Metoprolol succinate 75 mg p.o. daily. 6. Multivitamin 1 tab p.o. daily. 7. Xarelto 20 mg p.o. nightly. 8. Methimazole 2.5 mg p.o. daily. New medications at discharge: 1. Digoxin. 2. Lipitor. 3. Methimazole. 4. Metoprolol. 5. Xarelto. Medications discontinued on discharge: None. HOSPITAL COURSE: This is a brief summary of the patient's presentation. For more details, please see history and physical from Ariane Taylor NP, on . In brief, the patient is a 77-year-old female with past medical history significant only for hypertension, osteoarthritis, who was a long-term smoker, who presented to the emergency department after 4 days of worsening shortness of breath and lower extremity edema without chest pain. She reported never having these similar symptoms before. She was referred from her primary care provider. The patient had previously been on metoprolol and hydrochlorothiazide for blood pressure, but these had been stopped. In the emergency department, the patient had an elevated BNP, slightly elevated troponin and chest x-ray consistent with CHF. The patient was admitted to the hospital and started on IV diuresis, which led to improvement in her lower extremity edema and shortness of breath. The patient had a CT of the chest, negative for pulmonary embolism as above. The patient on the night of 09/27/18 , went into rapid atrial fibrillation with rates up to the 180s, which were able to be controlled with a diltiazem drip, though the patient had hypotension with this and was loaded with digoxin, which allowed diltiazem drip to be able to be transitioned to oral metoprolol with heart rates initially still in the one teens and then with up titration of dose down into the 80s to 100s. The patient was previously evaluated for a thyroid nodule earlier this year with a normal TSH at this time. However, the patient's TSH during this hospitalization was decreased at 0.08 with a normal T3 and T4 indicating possible subclinical hypothyroidism. The patient was seen in consultation by Dr. Mark Morin, who recommended outpatient followup and started the patient on methimazole. The patient was also started on beta blockers as above for control of these symptoms that may be contributing to her atrial fibrillation. The patient was weaned off her oxygen. The patient diuresed well with IV Lasix and was stable and amenable for discharge on 09/30/18. DISCHARGE PLAN: The patient was discharged to home. The patient will follow up closely with her primary care provider. The patient will be started on Lasix , should monitor her weight and discussed with her primary care provider increasing or decreasing the dose based on her continued weight loss or gain. The patient will be anticoagulated with Xarelto, have rate control with metoprolol and digoxin. The patient should have followup digoxin levels as well as BNP on followup with her primary care provider due to concern with hypokalemia and digoxin toxicity given her ongoing diuresis. The patient's digoxin level on the day of her discharge was 1.1. The patient has borderline low blood pressure and should engage in activity as tolerated with the caveat that she should be careful while standing. The patient was not symptomatic from her low blood pressure while in the hospital. The patient should follow up with Dr. Mark Morin in 4 to 6 weeks. The patient will be on methimazole until that time and its efficacy will be reevaluated with a repeat TSH and the other thyroid function tests. The patient should return to the hospital for passing out, chest pain, severe shortness of breath, or other alarming symptoms. GUMARO MAXWELL [id number]/CPS #: [id number] MTDD
--- NOTE | 2018-09-30 18:18 | PN ---
Subjective Date of Service: 09/30/18 Interval History: No overnight events. Pt started metoprolol 75mg this AM, which controlled HR to 80s-90s. Pt denies complaints or discomfort and wishes to return home. Friend is at bedside to take her. Called daughter who is aware of plan. Able to wean off supplemental O2 this AM. Family History: Unchanged from Admission Social History: Unchanged from Admission Past Medical History: Unchanged from Admission Objective Oxygen Devices in Use Now: None Eyes: No Scleral Icterus Ears/Nose/Mouth/Throat: Clear Oropharnyx, Mucous Membranes Moist Neck: NL Appearance and Movements; NL JVP Respiratory: Clear to Auscultation Cardiovascular: - - irreg irreg; no mgr Abdominal: NL Sounds; No Tenderness; No Distention, No Hepatosplenomegaly Extremities: - - trace edema over LLE; wwp b/l Result Diagrams: 09/30/18 05:22 09/30/18 05:22 Additional Lab and Data: Lab Results Assess/Plan/Problems-Billing Assessment: Patient is a 77yo female with a PMH only for HTN and OA who is admitted with 4 days of progressively worsening SOB and LE edema who is admitted for HFpEF exacerbation and is improving but developed Raipid Afib overnight, now improving. - Patient Problems (1) (HFpEF) heart failure with preserved ejection fraction Status: Acute Code(s): I50.30 - UNSPECIFIED DIASTOLIC (CONGESTIVE) HEART FAILURE SNOMED Code(s): 070363219 Comment: - With LE Edema, Pulmonary Edema and EF of 50-55% - No wall motion abnormalities - Increased wall thickness and mild atrial dilitation - Switch IV to PO Lasix; educated pt on monitoring weights at home - Risk factor managment - Likely cause of elevated troponin due to demand ischemia, may benefit from outpatient ischemic evaluation. (2) Atrial fibrillation with RVR Status: Acute Code(s): I48.91 - UNSPECIFIED ATRIAL FIBRILLATION SNOMED Code( s): 193813373404694 Comment: - Mildly symptomatic - HR high of 180 - Started on Diltiazem, now stopped - Loaded with Digoxin. Continue .125 daily. Monitor for hypokalemia with diuresis. - Started Metoprolol due to hyperthyroidism - Anticoagulation with Xarelto. Status and Disposition: Inpatient for HFpEF exacerbation with acute hypoxia and new onset Afib. Clinical course to dictate discharge. Hopeful D/C in AM.
== END 2018-09-30 13:50 | disposition home or self-care (01) | DRG 291 ==
LOC: ED 16:11 → MEDTELE 21:26
PROVIDERS: ADMIT Nurse Practitioner Family; ATTEND Internal Medicine
DX: I11.0 Hypertensive heart disease with heart failure (principal); J96.01 Acute respiratory failure with hypoxia; I50.31 Acute diastolic (congestive) heart failure; I24.8 Other forms of acute ischemic heart disease; K92.1 Melena; J98.11 Atelectasis; N13.30 Unspecified hydronephrosis; J44.9 Chronic obstructive pulmonary disease, unspecified; I27.20 Pulmonary hypertension, unspecified; E83.42 Hypomagnesemia; E05.80 Other thyrotoxicosis without thyrotoxic crisis or storm; I48.91 Unspecified atrial fibrillation; I34.0 Nonrheumatic mitral (valve) insufficiency; M19.90 Unspecified osteoarthritis, unspecified site; E87.6 Hypokalemia; E04.1 Nontoxic single thyroid nodule; F17.210 Nicotine dependence, cigarettes, uncomplicated; R74.8 Abnormal levels of other serum enzymes; Z79.1 Long term (current) use of non-steroidal anti-inflammatories (NSAID); Z79.899 Other long term (current) drug therapy; Z82.49 Family history of ischemic heart disease and other diseases of the circulatory system
CPT/HCPCS: 36415; 71046; 71275; 80048; 80053; 80061; 80162; 82550; 82607; 82746; 83520; 83605; 83735; 83880; 84436; 84443; 84479; 84484; 85025; 85379; 85610; 85730; 86376; 86800; 93005; 93306; 93970; 99284; A9270-GY; J1160; J1650; J1940; J3475; Q9967

== ENCOUNTER 2024-03-26 16:55 | Inpatient (IN) ==
[2024-03-26 18:53] LABS: ABS Basophils 0.1 10^3/uL (0.0-0.1); ABS Eosinophils 0.1 10^3/uL (0.0-0.5); ABS Monocytes 0.5 10^3/uL (0.0-0.9); ABS Neutrophils 7.1 10^3/uL (1.5-7.6); Eosinophil % 0.6 %; Hematocrit 38.9 % (35-45); Hemoglobin 13.4 g/dL (11.5-14.3); Lymphocyte % 10.9 %; Mean Corpuscular Hgb Conc 34.3 g/dL (31-36); Mean Corpuscular Volume 104.8 fL (80-97); Mean Platelet Volume 8.8 fL (7.5-11.2); Platelet Count 201 10^3/uL (150-450); Red Blood Count 3.71 10^6/uL (3.63-4.92); Red Cell Distribution Width 14.4 % (12-17); White Blood Count 8.7 10^3/uL (3.8-11.8)
[2024-03-26] MEDS: fentaNYL 100 mcg/2 ml 50 MCG/ML VIAL IV SLOW PU ONE ×3 (19:21→21:50)
[2024-03-26 19:31] LABS: Albumin 4.1 g/dL (3.2-5.2); Calcium 8.8 mg/dL (8.6-10.3); Creatinine, Serum 0.45 mg/dL (0.51-0.95); Digoxin 0.7 ng/ml (0.8-2.0); Globulin 2.1 g/dL (2-4); Potassium 3.9 mmol/L (3.5-5.0); Total Bilirubin 0.6 mg/dL (0.2-1.0); Total Protein 6.2 g/dL (6.4-8.9); eGFR CKD-EPI 96.6 (>60)
[2024-03-26] MEDS: Morphine 4 MG/ML VIAL (1 ml) IV ONE (19:51)
[2024-03-26] MEDS ORDERED: Acetaminophen IV 1 GM/100ML 1,000 MG/100 ML BAG IV PRN (21:59)
[2024-03-26] MEDS ORDERED: HYDROmorphone 0.5 MG/0.5 ML SYRINGE IV PRN (22:00)
[2024-03-27 06:31] LABS: ABS Basophils 0.1 10^3/uL (0.0-0.1); ABS Monocytes 0.8 10^3/uL (0.0-0.9); ABS Neutrophils 7.8 10^3/uL (1.5-7.6); ABS Nucleated RBC 0.01 10^3/ul; Eosinophil % 0.3 %; Hematocrit 33.1 % (35-45); Hemoglobin 11.6 g/dL (11.5-14.3); Lymphocyte % 10.6 %; Mean Corpuscular Hemoglobin 36.5 pg (27-33); Mean Corpuscular Hgb Conc 34.9 g/dL (31-36); Mean Corpuscular Volume 104.7 fL (80-97); Mean Platelet Volume 8.6 fL (7.5-11.2); Nucleated Red Blood Cells % 0.1 %/100WBC (0.0-0.8); Platelet Count 176 10^3/uL (150-450); Red Blood Count 3.17 10^6/uL (3.63-4.92); Red Cell Distribution Width 13.6 % (12-17); White Blood Count 9.8 10^3/uL (3.8-11.8)
[2024-03-27 06:50] LABS: Calcium 8.3 mg/dL (8.6-10.3); Creatinine, Serum 0.48 mg/dL (0.51-0.95); Potassium 3.7 mmol/L (3.5-5.0); eGFR CKD-EPI 95.1 (>60)
[2024-03-27] MEDS ORDERED: Lidocaine 2% PF 5 ML VIAL ONE ×2 (15:50→17:18)
[2024-03-27] MEDS ORDERED: Propofol 10 MG/ML 20 ML BTL ONE (15:50)
[2024-03-27] MEDS ORDERED: Rocuronium 50 mg VIAL 10 mg/ml 5 ml VIAL (50 mg) ONE ×2 (15:51→17:17)
[2024-03-27] MEDS ORDERED: fentaNYL 250 mcg/5 ml 50 MCG/ML 5 ml VIAL (250 MCG) ONE (17:13)
[2024-03-27] MEDS ORDERED: Albumin Human 5% 0 GM/0 ML BTL IV ONE (17:17)
[2024-03-27] MEDS ORDERED: Phenylephrine IV 10 MG/ML 1 ml VIAL ONE (17:18)
[2024-03-27] MEDS ORDERED: Lidocaine 1% w EPI 1:200,000 SDV 30 ML VIAL ONE (17:23)
[2024-03-27] MEDS ORDERED: ceFAZolin 2 GM PREMIX 2 GM/50 ML BAG ONE (17:53)
[2024-03-27 18:03] LABS: Folate 11.56 ng/mL (5.90-24.80)
[2024-03-27] MEDS ORDERED: Ondansetron 4 mg VIAL 2 MG/ML 2 ml VIAL ONE (19:06)
[2024-03-27] MEDS ORDERED: Dexamethasone IV 4 MG/ML VIAL 1 ml VIAL ONE (19:06)
[2024-03-27] MEDS ORDERED: Vancomycin 1,000 MG VIAL ONE (19:31)
[2024-03-27] MEDS ORDERED: Metoclopramide 5 MG/ML VIAL (10 mg) IV SLOW PU ONE (19:43)
[2024-03-27] MEDS ORDERED: Naloxone 0.4 mg VIAL 0.4 mg/ml 1 ml VIAL IV PRN (19:43)
[2024-03-27] MEDS ORDERED: Ondansetron 4 mg VIAL 2 MG/ML 2 ml VIAL IV PRN (19:43)
[2024-03-27] MEDS ORDERED: Acetaminophen IV 1 GM/100ML 1,000 MG/100 ML BAG IV ONE (21:06)
[2024-03-27] MEDS ORDERED: Polyethylene Glycol 3350 17 GM PACKET PO PRN (21:42)
[2024-03-27] MEDS ORDERED: Magnesium Hydroxide LIQ 30 ML UDC PO PRN (21:42)
[2024-03-27] MEDS ORDERED: Senna TAB 8.6 mg TAB PO PRN (21:42)
[2024-03-27] MEDS ORDERED: fentaNYL 100 mcg/2 ml 50 MCG/ML VIAL ONE (22:11)
[2024-03-27] MEDS: fentaNYL 100 mcg/2 ml 50 MCG/ML VIAL IV PRN (22:14)
[2024-03-27] MEDS ORDERED: Haloperidol 5 mg/ml SDV IV/IM 5 MG/ML AMP ONE (22:59)
[2024-03-27] MEDS: Haloperidol 5 mg/ml SDV IV/IM 5 MG/ML AMP IV SLOW PU PRN (23:04)
[2024-03-28] MEDS: ceFAZolin 2 GM PREMIX 2 GM/50 ML BAG IV SCH (03:18)
[2024-03-28 06:36] LABS: Creatinine, Serum 0.47 mg/dL (0.51-0.95); Magnesium 1.5 mg/dL (1.9-2.7); Potassium 3.7 mmol/L (3.5-5.0); eGFR CKD-EPI 95.6 (>60)
[2024-03-28 07:49] LABS: ABS Lymphocytes 0.5 10^3/uL (1.0-4.8); ABS Monocytes 0.7 10^3/uL (0.0-0.9); Hematocrit 28.9 % (35-45); Lymphocyte % 3.9 %; Mean Corpuscular Hemoglobin 36.2 pg (27-33); Mean Corpuscular Hgb Conc 34.5 g/dL (31-36); Mean Corpuscular Volume 105.1 fL (80-97); Mean Platelet Volume 9.1 fL (7.5-11.2); Platelet Count 140 10^3/uL (150-450); Red Blood Count 2.75 10^6/uL (3.63-4.92); White Blood Count 12.2 10^3/uL (3.8-11.8)
[2024-03-28] MEDS: Potassium Chlor 20 meq TAB.ER PO ONE (09:08)
[2024-03-28] MEDS: Magnesium Hydroxide LIQ 30 ML UDC PO SCH (09:09)
[2024-03-28] MEDS: Magnesium Sulfate 2 gm BAG 2 GM/50 ML BAG IVPB ONE (09:10)
[2024-03-28] MEDS: Lactated Ringers 1000 ml BAG 1,000 ML IV SCH (09:34)
[2024-03-29] MEDS ORDERED: ceFAZolin 2 GM PREMIX 2 GM/50 ML BAG IV SCH (03:30)
[2024-03-29 06:20] LABS: ABS Lymphocytes 0.9 10^3/uL (1.0-4.8); ABS Monocytes 0.9 10^3/uL (0.0-0.9); ABS Neutrophils 9.7 10^3/uL (1.5-7.6); Eosinophil % 0.2 %; Hematocrit 25.1 % (35-45); Hemoglobin 8.7 g/dL (11.5-14.3); Lymphocyte % 7.9 %; Mean Corpuscular Hemoglobin 36.3 pg (27-33); Mean Corpuscular Hgb Conc 34.5 g/dL (31-36); Mean Platelet Volume 8.2 fL (7.5-11.2); Platelet Count 162 10^3/uL (150-450); Red Blood Count 2.39 10^6/uL (3.63-4.92); Red Cell Distribution Width 14.1 % (12-17); White Blood Count 11.5 10^3/uL (3.8-11.8)
[2024-03-29 06:50] LABS: Calcium 7.9 mg/dL (8.6-10.3); Creatinine, Serum 0.47 mg/dL (0.51-0.95); Magnesium 1.8 mg/dL (1.9-2.7); Potassium 4.2 mmol/L (3.5-5.0); eGFR CKD-EPI 95.6 (>60)
[2024-03-29] MEDS: Magnesium Sulfate 2 gm BAG 2 GM/50 ML BAG IVPB ONE (09:40)
[2024-03-29] MEDS: Furosemide 20 mg/2 ml IV VIAL IV SLOW PU ONE (13:31)
[2024-03-29] MEDS: Senna TAB 8.6 mg TAB PO SCH (20:08)
[2024-03-30 05:43] LABS: ABS Eosinophils 0.1 10^3/uL (0.0-0.5); ABS Lymphocytes 0.9 10^3/uL (1.0-4.8); ABS Neutrophils 6.2 10^3/uL (1.5-7.6); Hematocrit 24.1 % (35-45); Hemoglobin 8.3 g/dL (11.5-14.3); Lymphocyte % 10.6 %; Mean Corpuscular Hemoglobin 36.4 pg (27-33); Mean Corpuscular Hgb Conc 34.5 g/dL (31-36); Mean Corpuscular Volume 105.4 fL (80-97); Mean Platelet Volume 8.1 fL (7.5-11.2); Platelet Count 176 10^3/uL (150-450); Red Blood Count 2.28 10^6/uL (3.63-4.92); Red Cell Distribution Width 14.5 % (12-17); White Blood Count 8.2 10^3/uL (3.8-11.8)
[2024-03-30 06:09] LABS: Calcium 7.8 mg/dL (8.6-10.3); Creatinine, Serum 0.33 mg/dL (0.51-0.95); Magnesium 1.9 mg/dL (1.9-2.7); eGFR CKD-EPI 104.1 (>60)
[2024-03-31 08:11] LABS: Hematocrit 25.6 % (35-45); Hemoglobin 8.9 g/dL (11.5-14.3)
[2024-03-31 10:15] VITALS: BP 125/64
== END 2024-03-31 08:43 | DRG 481 ==
LOC: ED 16:55 → EDHOLD 16:55 → SUATTDRO 21:40 → OBSVTOIN 21:40 → SSU 03-27 10:09
PROVIDERS: ADMIT Hospitalist; ATTEND Internal Medicine

== ENCOUNTER 2024-03-31 11:23 | Inpatient (IN) ==
[2024-03-31] MEDS ORDERED: Magnesium Hydroxide LIQ 30 ML UDC PO PRN (12:50)
[2024-03-31] MEDS: Senna TAB 8.6 mg TAB PO PRN (20:42)
[2024-03-31] MEDS: Polyethylene Glycol 3350 17 GM PACKET PO ONE (22:22)
[2024-04-01] MEDS: Polyethylene Glycol 3350 17 GM PACKET PO SCH (07:20)
[2024-04-01] MEDS ORDERED: Sodium Phosphate ADULT ENEMA 133 ML BTL PR PRN (18:30)
[2024-04-02 06:25] LABS: ABS Eosinophils 0.2 10^3/uL (0.0-0.5); ABS Lymphocytes 1.1 10^3/uL (1.0-4.8); ABS Neutrophils 2.9 10^3/uL (1.5-7.6); ABS Nucleated RBC 0.01 10^3/ul; Hematocrit 23.3 % (35-45); Hemoglobin 8.2 g/dL (11.5-14.3); Lymphocyte % 20.3 %; Mean Corpuscular Hemoglobin 36.7 pg (27-33); Mean Corpuscular Hgb Conc 35.1 g/dL (31-36); Mean Corpuscular Volume 104.4 fL (80-97); Mean Platelet Volume 7.5 fL (7.5-11.2); Nucleated Red Blood Cells % 0.1 %/100WBC (0.0-0.8); Platelet Count 267 10^3/uL (150-450); Red Blood Count 2.24 10^6/uL (3.63-4.92); Red Cell Distribution Width 13.7 % (12-17); White Blood Count 5.2 10^3/uL (3.8-11.8)
[2024-04-02 06:52] LABS: Albumin 3.3 g/dL (3.2-5.2); Albumin/Globulin Ratio 1.7 (1-3); Calcium 8.5 mg/dL (8.6-10.3); Creatinine, Serum 0.45 mg/dL (0.51-0.95); Globulin 1.9 g/dL (2-4); Potassium 4.1 mmol/L (3.5-5.0); Total Bilirubin 0.9 mg/dL (0.2-1.0); Total Protein 5.2 g/dL (6.4-8.9); eGFR CKD-EPI 96.6 (>60)
[2024-04-03] MEDS: Senna TAB 8.6 mg TAB PO SCH (20:20)
[2024-04-06 06:00] LABS: ABS Basophils 0.1 10^3/uL (0.0-0.1); ABS Eosinophils 0.2 10^3/uL (0.0-0.5); ABS Monocytes 0.9 10^3/uL (0.0-0.9); ABS Neutrophils 3.3 10^3/uL (1.5-7.6); ABS Nucleated RBC 0.02 10^3/ul; Eosinophil % 4.3 %; Hematocrit 25.5 % (35-45); Hemoglobin 8.8 g/dL (11.5-14.3); Mean Corpuscular Hemoglobin 36.5 pg (27-33); Mean Corpuscular Hgb Conc 34.5 g/dL (31-36); Mean Corpuscular Volume 105.7 fL (80-97); Mean Platelet Volume 7.4 fL (7.5-11.2); Nucleated Red Blood Cells % 0.3 %/100WBC (0.0-0.8); Platelet Count 307 10^3/uL (150-450); Red Blood Count 2.41 10^6/uL (3.63-4.92); White Blood Count 5.5 10^3/uL (3.8-11.8)
[2024-04-09 07:18] LABS: ABS Basophils 0.1 10^3/uL (0.0-0.1); ABS Eosinophils 0.3 10^3/uL (0.0-0.5); ABS Lymphocytes 1.1 10^3/uL (1.0-4.8); ABS Monocytes 0.6 10^3/uL (0.0-0.9); ABS Neutrophils 2.4 10^3/uL (1.5-7.6); ABS Nucleated RBC 0.01 10^3/ul; Eosinophil % 5.6 %; Hemoglobin 8.8 g/dL (11.5-14.3); Lymphocyte % 24.6 %; Mean Corpuscular Hemoglobin 34.6 pg (27-33); Mean Corpuscular Hgb Conc 32.8 g/dL (31-36); Mean Corpuscular Volume 105.6 fL (80-97); Mean Platelet Volume 7.5 fL (7.5-11.2); Nucleated Red Blood Cells % 0.1 %/100WBC (0.0-0.8); Platelet Count 341 10^3/uL (150-450); Red Blood Count 2.56 10^6/uL (3.63-4.92); Red Cell Distribution Width 15.1 % (12-17); White Blood Count 4.4 10^3/uL (3.8-11.8)
[2024-04-09 07:47] LABS: Albumin 3.5 g/dL (3.5-5.7); Albumin/Globulin Ratio 1.8 (1-3); Calcium 8.2 mg/dL (8.6-10.3); Creatinine, Serum 0.53 mg/dL (0.51-0.95); Globulin 1.9 g/dL (2-4); Potassium 4.6 mmol/L (3.5-5.0); Total Bilirubin 0.9 mg/dL (0.2-1.0); Total Protein 5.4 g/dL (6.4-8.9); eGFR CKD-EPI 92.9 (>60)
[2024-04-16 07:37] LABS: ABS Basophils 0.1 10^3/uL (0.0-0.1); ABS Eosinophils 0.1 10^3/uL (0.0-0.5); ABS Monocytes 0.7 10^3/uL (0.0-0.9); ABS Neutrophils 2.5 10^3/uL (1.5-7.6); Eosinophil % 3.4 %; Hematocrit 28.9 % (35-45); Hemoglobin 9.7 g/dL (11.5-14.3); Lymphocyte % 22.7 %; Mean Corpuscular Hemoglobin 34.6 pg (27-33); Mean Corpuscular Hgb Conc 33.6 g/dL (31-36); Mean Platelet Volume 8.1 fL (7.5-11.2); Nucleated Red Blood Cells % 0.1 %/100WBC (0.0-0.8); Platelet Count 334 10^3/uL (150-450); Red Blood Count 2.81 10^6/uL (3.63-4.92); White Blood Count 4.4 10^3/uL (3.8-11.8)
[2024-04-16 07:50] LABS: Albumin 3.6 g/dL (3.5-5.7); Albumin/Globulin Ratio 1.8 (1-3); Calcium 8.3 mg/dL (8.6-10.3); Creatinine, Serum 0.49 mg/dL (0.51-0.95); Potassium 4.3 mmol/L (3.5-5.0); Total Bilirubin 0.7 mg/dL (0.2-1.0); Total Protein 5.6 g/dL (6.4-8.9); eGFR CKD-EPI 94.6 (>60)
[2024-04-23 06:33] LABS: ABS Basophils 0.1 10^3/uL (0.0-0.1); ABS Eosinophils 0.1 10^3/uL (0.0-0.5); ABS Lymphocytes 0.8 10^3/uL (1.0-4.8); ABS Monocytes 0.5 10^3/uL (0.0-0.9); ABS Neutrophils 2.6 10^3/uL (1.5-7.6); Eosinophil % 3.5 %; Hematocrit 30.5 % (35-45); Hemoglobin 9.9 g/dL (11.5-14.3); Lymphocyte % 19.7 %; Mean Corpuscular Hemoglobin 33.1 pg (27-33); Mean Corpuscular Hgb Conc 32.6 g/dL (31-36); Mean Corpuscular Volume 101.4 fL (80-97); Mean Platelet Volume 8.3 fL (7.5-11.2); Nucleated Red Blood Cells % 0.1 %/100WBC (0.0-0.8); Platelet Count 265 10^3/uL (150-450); White Blood Count 4.1 10^3/uL (3.8-11.8)
[2024-04-23 07:06] LABS: Albumin 3.7 g/dL (3.5-5.7); Albumin/Globulin Ratio 1.9 (1-3); Calcium 8.6 mg/dL (8.6-10.3); Creatinine, Serum 0.48 mg/dL (0.51-0.95); Globulin 1.9 g/dL (2-4); Potassium 4.3 mmol/L (3.5-5.0); Total Bilirubin 0.6 mg/dL (0.2-1.0); Total Protein 5.6 g/dL (6.4-8.9); eGFR CKD-EPI 95.1 (>60)
[2024-04-28 06:26] VITALS: BP 132/54
== END 2024-04-28 16:30 | disposition home or self-care (01) | DRG 559 ==
LOC: PMRU 11:52
PROVIDERS: ADMIT Physical Medicine & Rehabilitation; ATTEND Physical Medicine & Rehabilitation